=== PATIENT | female | born 1935 | race Caucasian/White ===

== ENCOUNTER 2017-03-17 14:15 | Emergency (ER) | payer OTHER ==
--- NOTE | 2017-03-17 14:50 | DR.GENAD ---
HPI - Complaint/Symptoms Chief Complaint Doctors Comments: patient with Parkinsons and dementia. Home health nurse noted left sided weakness, possible decreased breath sounds. Patient is confined to bed. - Source History Provided: Patient, Family Member - Mode of Arrival Mode of Arrival: Stretcher - Timing Came on: Gradually - Location Location: left side arm,leg - Severity Severity: Mild - Modifying Factors Worsens:: unknown - Associated Signs and Symptoms Associated Signs and Symptoms: none PMH - PMH Past Medical History: Alzheimers, Anxiety, Arthritis, Dementia, Diabetes, GERD, Hypertension Past Surgical History: Yes Surgical History: Appendectomy, Cholecystectomy, Ortho Surgery - Family History Family Medical History: Diabetes Mellitus, [place], Coronary Artery Disease, Heart Failure, Hypertension - Social History Do you use any recreational Drugs:: No ROS - Review of Systems Constitutional: Weakness (side weakness) Eyes: No Symptoms Reported ENTM: No Symptoms Reported Respiratoy: Other (decreased sounds left lung) Cardiovascular: No Symptoms Reported Gastrointestinal/Abdominal: No Symptoms Reported Neurological: Weakness (left arm) Musculoskeletal: No Symptoms Reported Integumentary: No Symptoms Reported Hematologic/Lymphatic: No Symptoms Reported Endocrine: No Symptoms Reported Psychiatric: Depression, Other (dementia) PE - Vital Signs Vitals: Temperature 97.9 F Pulse Rate 86 Respiratory Rate 16 Blood Pressure [Left Arm] 160/96 Blood Pressure [Right Arm] 140/67 Blood Pressure [Standing] 146/97 Blood Pressure [Sitting] 183/88 Blood Pressure [Lying] 162/63 Blood Pressure 103/55 O2 Sat by Pulse Oximetry 96 - General Limitations: No Limitations General Appearance: Alert, In No Apparent Distress - Head Head Exam: Normal Inspection, Atraumatic - Eyes Eye exam: Normal Appearance, EOMI. negative: Scleral Icterus, Conjunctival Injection - ENT ENT Exam: Normal Exam, Normal Oropharynx External Ear Exam: Normal External Inspection Nose Exam: Normal Nose Exam Mouth Exam: Normal Inspection. negative: Drooling, Trismus - Neck Neck Exam: Normal Inspection, Trachea Midline - Chest Chest Inspection: Normal Inspection - Respiratory Respiratory Exam: Other. negative: Accessory Muscle Use, Respiratory Distress Respiratory Exam: Left Decreased Breath Sounds, Lower Decreased Breath Sounds - Cardiovascular Cardiovascular Exam: Regular Rate - Abdominal Exam Abdominal Exam: Normal Inspection, Normal Bowel Sounds, Soft. negative: Distention, Tenderness, Guarding - Extremities Extremities Exam: Normal Inspection, Full ROM, Tenderness - Back Back Exam: Normal Inspection, Full ROM - Neurologic Neurological Exam: Alert, CN II-XII Intact. negative: Oriented X3 - Psychiatric Psychiatric Exam: Normal Affect, Normal Mood - Skin Skin Exam: Intact, Normal Color Course - Treatment Treatment: 1717: caase discussed with recommended out patient antibiotics and follow up Dr. Phillips ROR - Labs Reviewed Result Diagrams: 03/17/17 14:55 03/17/17 14:55 Laboratory: WBC 11.3 X10^3/uL (3.6-10.0) H 03/17/17 14:55 RBC 3.44 X10^6/uL (3.5-5.4) L 03/17/17 14:55 Hgb 10.3 g/dL (12.0-16.0) L 03/17/17 14:55 Hct 30.4 % (36.0-47.0) L 03/17/17 14:55 MCV 88.3 fL (80.0-100.0) 03/17/17 14:55 MCH 30.0 pg (27.0-34.0) 03/17/17 14:55 MCHC 34.0 g/dL (33.0-35.0) 03/17/17 14:55 RDW 14.9 % (11.6-16.5) 03/17/17 14:55 Plt Count 325 X10^3/uL (150.0-450.0) 03/17/17 14:55 MPV 6.6 fL (7.4-11.0) L 03/17/17 14:55 Neut % 83.9 % (42.0-75.0) H 03/17/17 14:55 Lymph % 9.5 % (21.0-51.0) L 03/17/17 14:55 [place] % 5.7 % (0.0-13.0) 03/17/17 14:55 Eos % 0.4 % (0.9-2.9) L 03/17/17 14:55 Baso % 0.5 % (0.2-1.0) 03/17/17 14:55 Neut # 9.5 x10^3/uL (2.2-4.8) H 03/17/17 14:55 Lymph # 1.1 X10^3/uL (1.3-2.9) L 03/17/17 14:55 [place] # 0.6 x10^3/uL (0.3-0.8) 03/17/17 14:55 Eos # 0.0 x10^3/uL (0.0-0.2) 03/17/17 14:55 Baso # 0.1 X10^3/uL (0.0-0.1) 03/17/17 14:55 Absolute Nucleated RBC 0.0 /100WBC 03/17/17 14:55 Sodium 137 mmol/L (136-145) 03/17/17 14:55 Corrected Sodium 142 mmol/L (136-145) 03/17/17 14:55 Potassium 4.1 mmol/L (3.5-5.1) 03/17/17 14:55 Chloride 100 mmol/L (98-107) 03/17/17 14:55 Carbon Dioxide 30.4 mmol/L (21-32) 03/17/17 14:55 BUN 15 mg/dL (7-18) 03/17/17 14:55 Creatinine 0.83 mg/dL (0.55-1.02) 03/17/17 14:55 Est GFR (MDRD) Af Amer > 60 (>60) 03/17/17 14:55 Est GFR (MDRD) Non-Af > 60 (>60) 03/17/17 14:55 Glucose 315 mg/dL (65-99) H 03/17/17 14:55 Calcium 8.9 mg/dL (8.5-10.1) 03/17/17 14:55 Corrected Calcium 9.9 mg/dL (8.5-10.1) 03/17/17 14:55 Total Bilirubin 0.40 mg/dL (0.2-1.0) 03/17/17 14:55 AST 10 Units/L (15-37) L 03/17/17 14:55 ALT < 6 Units/L (12-78) L 03/17/17 14:55 Alkaline Phosphatase 67 Units/L (46-116) 03/17/17 14:55 Total Protein 6.8 g/dL (6.4-8.2) 03/17/17 14:55 Albumin 2.8 g/dL (3.4-5.0) L 03/17/17 14:55 Globulin 4.0 g/dL (2.5-4.5) 03/17/17 14:55 Albumin/Globulin Ratio 0.7 Ratio (1.1-2.1) L 03/17/17 14:55 Specimen Type Catherized urine 03/17/17 16:10 Urine Color Yellow (YELLOW) 03/17/17 16:10 Urine Appearance Slightly hazy (CLEAR) 03/17/17 16:10 Urine pH 6.0 (5.0 - 8.0) 03/17/17 16:10 Ur Specific [place] 1.020 (1.000-1.030) 03/17/17 16:10 Urine Protein 3+ (NEGATIVE) 03/17/17 16:10 Urine Glucose (UA) 3+ (NEGATIVE) 03/17/17 16:10 Urine Ketones 1+ (NEGATIVE) 03/17/17 16:10 Urine Occult Blood 3+ (NEGATIVE) 03/17/17 16:10 Urine Nitrite Negative (NEGATIVE) 03/17/17 16:10 Urine Bilirubin Negative (NEGATIVE) 03/17/17 16:10 Urine Urobilinogen 1+ (NORMAL) 03/17/17 16:10 Ur Leukocyte Esterase 3+ (NEGATIVE) 03/17/17 16:10 Urine RBC 5-10 /HPF (NEGATIVE) 03/17/17 16:10 Urine WBC Tntc /HPF (NEGATIVE) 03/17/17 16:10 Ur Squamous Epith Cells Rare /HPF (NEGATIVE) 03/17/17 16:10 Urine Bacteria 2+ /HPF (NEGATIVE) 03/17/17 16:10 Urine Yeast Moderate /HPF (NEGATIVE) 03/17/17 16:10 Ur Culture Indicated? Yes/culture set up 03/17/17 16:10 - XRAY XRAY Interpreted by: Radiologist XRAY Findings: CT Head: unchanged Chest: possible pneumothorax CT Chest: no acute diseas - EKG Rate: 81 [place]: LAD Block: LBBB ST: Nonsp (V4-V5 t wave inversion compared to 10/2016) - Diagnosis Discharge Problem: UTI (urinary tract infection) Qualifiers: Urinary tract infection type: acute cystitis Hematuria presence: with hematuria Qualified Code(s): N30.01 - Acute cystitis with hematuria - Discharge Plan Condition: Stable Prescriptions: Ciprofloxacin HCl [CIPRO 500 MG TAB *] 500 mg PO Q12H #20 tab - Follow ups/Referrals Follow ups/Referrals: MAYRA PHILLIPS [Primary Care Provider] - 3 days - Instructions
[2017-03-17 14:57] VITALS: BP 103/55; BMI 14.6
[2017-03-17 15:04] LABS: BASOPHILS # (AUTO) 0.1 X10^3/uL (0.0-0.1); BASOPHILS % (AUTO) 0.5 % (0.2-1.0); EOSINOPHILS % (AUTO) 0.4 % (0.9-2.9); HEMATOCRIT 30.4 % (36.0-47.0); HEMOGLOBIN 10.3 g/dL (12.0-16.0); LYMPHOCYTES # (AUTO) 1.1 X10^3/uL (1.3-2.9); LYMPHOCYTES % (AUTO) 9.5 % (21.0-51.0); MEAN CORPUSCULAR VOLUME 88.3 fL (80.0-100.0); MEAN PLATELET VOLUME 6.6 fL (7.4-11.0); MONOCYTES # (AUTO) 0.6 x10^3/uL (0.3-0.8); MONOCYTES % (AUTO) 5.7 % (0.0-13.0); NEUTROPHILS # (AUTO) 9.5 x10^3/uL (2.2-4.8); NEUTROPHILS % (AUTO) 83.9 % (42.0-75.0); PLATELET COUNT 325 X10^3/uL (150.0-450.0); RED BLOOD COUNT 3.44 X10^6/uL (3.5-5.4); RED CELL DISTRIBUTION WIDTH 14.9 % (11.6-16.5); WHITE BLOOD COUNT 11.3 X10^3/uL (3.6-10.0)
[2017-03-17 15:16] LABS: ALANINE AMINOTRANSFERASE < 6 Units/L (12-78); ALBUMIN 2.8 g/dL (3.4-5.0); ALKALINE PHOSPHATASE 67 Units/L (46-116); ASPARTATE AMINO TRANSFERASE 10 Units/L (15-37); BLOOD UREA NITROGEN 15 mg/dL (7-18); CALCIUM 8.9 mg/dL (8.5-10.1); CARBON DIOXIDE 30.4 mmol/L (21-32); CHLORIDE 100 mmol/L (98-107); COR CA(FOR HYPOALB) 9.9 mg/dL (8.5-10.1); COR NA(FOR HYPERGLY) 142 mmol/L (136-145); CREATININE 0.83 mg/dL (0.55-1.02); GLUCOSE 315 mg/dL (65-99); SODIUM 137 mmol/L (136-145); TOTAL PROTEIN 6.8 g/dL (6.4-8.2); eGFR BLACK RACES > 60 (>60); eGFR NON BLACK RACES > 60 (>60)
--- NOTE | 2017-03-17 15:16 | CT ---
HISTORY: Left-sided weakness and CVA symptoms. Noncontrast head CT examination. Comparison: June 21, 2016. Technique: Multiple axial images of the brain were obtained from the skull base to the vertex without administr ation of IV contrast. Findings: There is a chronic left basal ganglia lacunar ischemic event. There is moderate sulcal and cisternal prominence as well as atherosclerotic change in the proximal intracranial carotid and eleni tebral arteries, which is not out of proportion to the patient's stated age. There is diffuse CT den sity alteration seen in the periventricular white matter of the high and mid-convexity, which is lik anne-marie in the setting of small vessel disease and not out of proportion to the patient's stated age. Th ere is mild bilateral ex vacuo ventricular dilatation without evidence for hydrocephalus or herniati on syndrome. No midline shift is evident. No acute intraparenchymal hemorrhage or mass can be identi fied. No extra-axial fluid collections are seen. No alteration in the attenuation of the brain par enchyma can be identified to suggest acute or subacute ischemic change. However, if the patients sy mptoms are clinically \T\ neurologically concerning for an acute ischemic event, then MR imaging of the brain with DWI sequencing would likely be beneficial to exclude an acute CVA. The extracranial structures are unremarkable. IMPRESSION: 1. No acute intracranial process or changes identified. Chronic appearing left basal ganglial lacun ar ischemic event appreciated, unchanged compared to 2016. 2. Age-appropriate intra-cranial changes of advancing age. Reported By:
--- NOTE | 2017-03-17 16:00 | RAD ---
HISTORY: Decreased breath sounds left lung Study: Single view of the chest. Comparison: 11/19/2016 Findings: The cardiomediastinal silhouette is normal. There appears to be a deep sulcus on the left which was not present on prior examination. No definite visceral pleural line can be seen. Osseous structures demonstrate no acute abnormality. IMPRESSION: 1. Interval development of deep sulcus on the left. This may be secondary to difference in inspirat ion however anterior pneumothorax cannot be excluded. Recommend PA and lateral views in upright posi tion or possibly CT if there is high clinical concern for pneumothorax. Reported By:
[2017-03-17 16:14] LABS: BILIRUBIN,URINE NEGATIVE (NEGATIVE); BLOOD/HEMOGLOBIN,URINE 3+ (NEGATIVE); GLUCOSE, URINE 3+ (NEGATIVE); KETONES,URINE 1+ (NEGATIVE); LEUKOCYTE ESTERASE ,URINE 3+ (NEGATIVE); NITRITES,URINE NEGATIVE (NEGATIVE); PROTEIN,URINE 3+ (NEGATIVE); UROBILINOGEN,URINE 1+ (NORMAL)
[2017-03-17 16:29] LABS: APPEARANCE,URINE SLIGHTLY HAZY (CLEAR); BACTERIA,URINE 2+ /HPF (NEGATIVE); COLOR,URINE YELLOW (YELLOW); SQUAMOUS EPITHELIAL CELL,UR RARE /HPF (NEGATIVE); YEAST,URINE MODERATE /HPF (NEGATIVE)
[2017-03-17] MEDS ORDERED: ZOSYN VIAL 2.25 GM IV ONE (16:55)
--- NOTE | 2017-03-17 17:10 | CT ---
CT chest without contrast Indication: Weakness Comparison: chest radiograph performed earlier on same day Technique: Multiple axial images of the chest were obtained from the thoracic inlet to the upper abd omen without the administration of IV contrast. Coronal and sagittal images were also provided. Radiation dose reduction techniques were performed utilizing adjustment for MA/kVP based on patient body size. Findings: The thyroid gland is normal. Heart size is normal without pericardial effusion. Extensive coronary a rtery atherosclerotic disease. The thoracic is normal in caliber with scattered calcified atheroscle rotic disease. No enlarged mediastinal or hilar lymphadenopathy. No acute airspace disease. No pleur al effusion or pneumothorax. Central airways are clear. Imaging of the upper abdomen demonstrates no acute abnormality. PEG tube is noted in place within the stomach. Severe calcified atherosclerotic disease of the abdominal aorta and large branch vessels. Review of bone windows and the upper abdomen demonstrates no acute abnormality. IMPRESSION: No acute cardiopulmonary abnormality. Reported By:
[2017-03-17] MEDS ORDERED: ROCEPHIN 1 GM IV PREMIX * OUT OF STOCK 50 ML IV ONE (17:19)
[2017-03-17] MEDS ORDERED: ROCEPHIN VIAL 1 GM 1 GM in NS 50 ML IV + SPIKE MINIBAG* 50 ML IV ONE (17:20)
[2017-03-17] MEDS ORDERED: NS 50 ML IV 50 ML IV ONE (17:21)
== END 2017-03-17 17:48 | disposition home or self-care (01) ==
LOC: ER 14:15
DX: N30.01 Acute cystitis with hematuria (principal); B96.29 Other Escherichia coli [E. coli] as the cause of diseases classified elsewhere; F03.90 Unspecified dementia, unspecified severity, without behavioral disturbance, psychotic disturbance, mood disturbance, and anxiety
CPT/HCPCS: 36415; 70450; 71010; 71250; 80053; 81001; 85025; 87086; 87088; 87186; 93005; 93010; 96365; 96374; 99283; A4222; J0696

== ENCOUNTER 2017-05-05 00:10 | Emergency (ER) | payer OTHER ==
[2017-05-05 00:16] VITALS: BMI 14.4
--- NOTE | 2017-05-05 00:33 | DR.GENAD ---
HPI - PCP Primary Care Physician: Alan - Complaint/Symptoms Chief Complaint:: "She has been really weak and just started throwing up. She has also been crying and scared" Self Treatment fo Chief Complaint: Dramamine. Phenergan - Source History Provided: Patient, Family Member - Mode of Arrival Mode of Arrival: EMS - Timing Onset of Chief Complaint: 05/05/17 PMH - PMH Past Medical History: Yes Past Medical History: Alzheimers, Anxiety, Arthritis, Dementia, Diabetes, GERD, Hypertension Past Surgical History: Yes Surgical History: Appendectomy, Cholecystectomy, Ortho Surgery - Family History History of Family Medical Conditions: Yes Family Medical History: Diabetes Mellitus, [place], Coronary Artery Disease, Heart Failure, Hypertension - Social History Does patient currently use any type of tobacco product: No Have you used tobacco products in the last 12 months: No Type of Tobacco Use: None Does any household member use tobacco: No Do you use any recreational Drugs:: No Lives Where: Home - infectious screening In the last 2 months have you had wt loss of >10#?: NO Have you had fever, night sweats or hemotysis?: No Have you traveled outside the country in the last 6 months?: No Isolation: Standard ROS - Review of Systems Eyes: No Symptoms Reported ENTM: No Symptoms Reported Respiratoy: No Symptoms Reported Cardiovascular: No Symptoms Reported Gastrointestinal/Abdominal: No Symptoms Reported Genitourinary: No Symptoms Reported Neurological: No Symptoms Reported Musculoskeletal: No Symptoms Reported Integumentary: Lesions (bed sore buttock) Hematologic/Lymphatic: No Symptoms Reported Endocrine: No Symptoms Reported Psychiatric: No Symptoms Reported All Other Systems: Reviewed and Negative PE - Vital Signs Vitals: Temperature 99.6 F Pulse Rate 110 Respiratory Rate 18 Blood Pressure [Left Arm] 160/96 Blood Pressure [Right Arm] 140/67 Blood Pressure [Standing] 146/97 Blood Pressure [Sitting] 183/88 Blood Pressure [Lying] 162/63 Blood Pressure 149/77 O2 Sat by Pulse Oximetry 98 - General Limitations: No Limitations General Appearance: Alert, In No Apparent Distress - Head Head Exam: Normal Inspection - Eyes Eye exam: PERRL, EOMI - ENT ENT Exam: Normal Exam External Ear Exam: Normal External Inspection TM/Canal Exam: Bilateral Normal Nose Exam: Normal Nose Exam Mouth Exam: Normal Inspection Throat Exam: Normal Inspection - Neck Neck Exam: Normal Inspection - Chest Chest Inspection: Normal Inspection - Respiratory Respiratory Exam: Normal Lung Sounds Bilat Respiratory Exam: Bilateral Clear to Auscultation - Cardiovascular Cardiovascular Exam: Tachycardia - Abdominal Exam Abdominal Exam: Normal Inspection Abdominal Tenderness: negative: RUQ, RLQ, LUQ, LLQ, Epigastrium, Suprapubic, Diffuse, Mild, Moderate, Severe, Other - Extremities Extremities Exam: Normal Inspection - Back Back Exam: Normal Inspection - Neurologic Neurological Exam: Alert, Oriented X3, CN II-XII Intact - Psychiatric Psychiatric Exam: Normal Affect - Skin Skin Exam: Warm, Dry (decubitous ulcer) Course - Treatment Treatment: NS x 2L IV - Reevaluation 1st: Improved - Consultation Called: 01:50 (Left message) ROR - Labs Reviewed Result Diagrams: 05/05/17 00:52 05/05/17 05:30 Laboratory: WBC 13.7 X10^3/uL (3.6-10.0) H 05/05/17 00:52 RBC 3.83 X10^6/uL (3.5-5.4) 05/05/17 00:52 Hgb 11.1 g/dL (12.0-16.0) L 05/05/17 00:52 Hct 32.0 % (36.0-47.0) L 05/05/17 00:52 MCV 83.6 fL (80.0-100.0) 05/05/17 00:52 MCH 28.9 pg (27.0-34.0) 05/05/17 00:52 MCHC 34.5 g/dL (33.0-35.0) 05/05/17 00:52 RDW 14.8 % (11.6-16.5) 05/05/17 00:52 Plt Count 512 X10^3/uL (150.0-450.0) H 05/05/17 00:52 MPV 6.9 fL (7.4-11.0) L 05/05/17 00:52 Neut % 86.1 % (42.0-75.0) H 05/05/17 00:52 Lymph % 7.7 % (21.0-51.0) L 05/05/17 00:52 [place] % 5.3 % (0.0-13.0) 05/05/17 00:52 Eos % 0.2 % (0.9-2.9) L 05/05/17 00:52 Baso % 0.7 % (0.2-1.0) 05/05/17 00:52 Neut # 11.8 x10^3/uL (2.2-4.8) H 05/05/17 00:52 Lymph # 1.1 X10^3/uL (1.3-2.9) L 05/05/17 00:52 [place] # 0.7 x10^3/uL (0.3-0.8) 05/05/17 00:52 Eos # 0.0 x10^3/uL (0.0-0.2) 05/05/17 00:52 Baso # 0.1 X10^3/uL (0.0-0.1) 05/05/17 00:52 Absolute Nucleated RBC 0.0 /100WBC 05/05/17 00:52 Sodium 134 mmol/L (136-145) L 05/05/17 05:30 Corrected Sodium 137 mmol/L (136-145) 05/05/17 05:30 Potassium 3.8 mmol/L (3.5-5.1) 05/05/17 05:30 Chloride 98 mmol/L (98-107) 05/05/17 05:30 Carbon Dioxide 29.0 mmol/L (21-32) 05/05/17 05:30 BUN 13 mg/dL (7-18) 05/05/17 05:30 Creatinine 0.68 mg/dL (0.55-1.02) 05/05/17 05:30 Est GFR (MDRD) Af Amer > 60 (>60) 05/05/17 05:30 Est GFR (MDRD) Non-Af > 60 (>60) 05/05/17 05:30 Glucose 217 mg/dL (65-99) H 05/05/17 05:30 Calcium 9.3 mg/dL (8.5-10.1) 05/05/17 05:30 Corrected Calcium 10.2 mg/dL (8.5-10.1) H 05/05/17 00:52 Total Bilirubin 0.50 mg/dL (0.2-1.0) 05/05/17 00:52 AST 28 Units/L (15-37) 05/05/17 00:52 ALT 10 Units/L (12-78) L 05/05/17 00:52 Alkaline Phosphatase 66 Units/L (46-116) 05/05/17 00:52 C-Reactive Protein 61.10 mg/L (0-3.0) H 05/05/17 00:52 Total Protein 7.3 g/dL (6.4-8.2) 05/05/17 00:52 Albumin 3.0 g/dL (3.4-5.0) L 05/05/17 00:52 Globulin 4.3 g/dL (2.5-4.5) 05/05/17 00:52 Albumin/Globulin Ratio 0.7 Ratio (1.1-2.1) L 05/05/17 00:52 - XRAY XRAY Interpreted by: Radiologist (Chest: clear) - Diagnosis Discharge Problem: Acute hyponatremia Vomiting Qualifiers: Vomiting type: unspecified Vomiting Intractability: unspecified Nausea presence : with nausea Qualified Code(s): R11.2 - Nausea with vomiting, unspecified - Discharge Plan Condition: Stable - Follow ups/Referrals Follow ups/Referrals: MAYRA FAULKNER [Primary Care Provider] - 3 days - Instructions
[2017-05-05] MEDS ORDERED: NS 1000 ML 1,000 ML IV ONE (00:34)
[2017-05-05] MEDS ORDERED: NS 1000 ML 1,000 ML ONE ×2 (00:37→02:37)
[2017-05-05 01:03] LABS: BASOPHILS # (AUTO) 0.1 X10^3/uL (0.0-0.1); BASOPHILS % (AUTO) 0.7 % (0.2-1.0); EOSINOPHILS % (AUTO) 0.2 % (0.9-2.9); HEMOGLOBIN 11.1 g/dL (12.0-16.0); LYMPHOCYTES # (AUTO) 1.1 X10^3/uL (1.3-2.9); LYMPHOCYTES % (AUTO) 7.7 % (21.0-51.0); MEAN CORPUSCULAR HEMOGLOBIN 28.9 pg (27.0-34.0); MEAN CORPUSCULAR HGB CONC 34.5 g/dL (33.0-35.0); MEAN CORPUSCULAR VOLUME 83.6 fL (80.0-100.0); MEAN PLATELET VOLUME 6.9 fL (7.4-11.0); MONOCYTES # (AUTO) 0.7 x10^3/uL (0.3-0.8); MONOCYTES % (AUTO) 5.3 % (0.0-13.0); NEUTROPHILS # (AUTO) 11.8 x10^3/uL (2.2-4.8); NEUTROPHILS % (AUTO) 86.1 % (42.0-75.0); PLATELET COUNT 512 X10^3/uL (150.0-450.0); RED BLOOD COUNT 3.83 X10^6/uL (3.5-5.4); RED CELL DISTRIBUTION WIDTH 14.8 % (11.6-16.5); WHITE BLOOD COUNT 13.7 X10^3/uL (3.6-10.0)
[2017-05-05 01:13] LABS: ALANINE AMINOTRANSFERASE 10 Units/L (12-78); ALKALINE PHOSPHATASE 66 Units/L (46-116); ASPARTATE AMINO TRANSFERASE 28 Units/L (15-37); BLOOD UREA NITROGEN 15 mg/dL (7-18); CALCIUM 9.4 mg/dL (8.5-10.1); CARBON DIOXIDE 28.7 mmol/L (21-32); CHLORIDE 93 mmol/L (98-107); COR CA(FOR HYPOALB) 10.2 mg/dL (8.5-10.1); COR NA(FOR HYPERGLY) 134 mmol/L (136-145); CREATININE 0.74 mg/dL (0.55-1.02); GLUCOSE 270 mg/dL (65-99); SODIUM 130 mmol/L (136-145); TOTAL PROTEIN 7.3 g/dL (6.4-8.2); eGFR BLACK RACES > 60 (>60); eGFR NON BLACK RACES > 60 (>60)
--- NOTE | 2017-05-05 01:15 | RAD ---
Chest, one view Indication: Nausea and vomiting Comparison: 03/17/2017 Findings: Normal heart size. Lungs are hyperinflated but clear. No pleural effusion or pneumothorax identified. Impression: Lungs hyperinflated, but clear. Reported By:
[2017-05-05] MEDS ORDERED: ZOFRAN INJ 4 MG VIAL ONE (02:37)
[2017-05-05] MEDS ORDERED: ATIVAN INJ 2 MG VIAL ONE (02:38)
[2017-05-05] MEDS ORDERED: ATIVAN INJ 2 MG VIAL IVP ONE (02:39)
[2017-05-05] MEDS ORDERED: ZOFRAN INJ 4 MG VIAL IVP ONE (02:55)
[2017-05-05] MEDS ORDERED: NS 1000 ML 1,000 ML IV SCH (03:00)
[2017-05-05 05:59] LABS: BLOOD UREA NITROGEN 13 mg/dL (7-18); CALCIUM 9.3 mg/dL (8.5-10.1); CHLORIDE 98 mmol/L (98-107); COR NA(FOR HYPERGLY) 137 mmol/L (136-145); CREATININE 0.68 mg/dL (0.55-1.02); GLUCOSE 217 mg/dL (65-99); SODIUM 134 mmol/L (136-145); eGFR BLACK RACES > 60 (>60); eGFR NON BLACK RACES > 60 (>60)
[2017-05-05 06:45] VITALS: BP 139/78
== END 2017-05-05 06:40 | disposition home or self-care (01) ==
LOC: ER 00:10
DX: E87.1 Hypo-osmolality and hyponatremia (principal); R11.2 Nausea with vomiting, unspecified
CPT/HCPCS: 36415; 71010; 80048; 80053; 85025; 86140; 96365; 96374; 96375; 99283; A4222; J2060; J2405

== ENCOUNTER 2017-05-19 23:28 | Emergency (ER) | payer OTHER ==
[2017-05-19 23:42] VITALS: BP 132/65; BMI 17.2
--- NOTE | 2017-05-19 23:43 | DR.GENAD ---
HPI - PCP Primary Care Physician: IKE - HPI Comment HPI Comment: HISTORY BELOW. - Complaint/Symptoms Chief Complaint Doctors Comments: PATIENT BLOOD PRESSURE WAS ABNORMAL AT HOME AND EMS WAS CALLED. PATIENT COMPLAINING OF ACHES AND PAIN WELL. PT HAVE FEVER. Chief Complaint:: EMS RESPONDED TO A CALL IN [facility] FOR HYPERTENSION, AND POSSIBLE FEVER TODAY ONLY. - Nurses notes reviewed Nurses Notes Review: Yes - Source History Provided: EMS - Mode of Arrival Mode of Arrival: EMS - Timing Onset of Chief Complaint: 05/19/17 Came on: Suddenly - Duration Duration: Constant Duration: Hours - Severity Severity: Moderate PMH - PMH Past Medical History: Yes Past Medical History: Alzheimers, Anxiety, Arthritis, Dementia, Diabetes, GERD, Hypertension Past Medical History Comment: CARDENAS CATHETER, G TUBE Past Surgical History: Yes Surgical History: Appendectomy, Cholecystectomy, Ortho Surgery - Family History History of Family Medical Conditions: Yes Family Medical History: Diabetes Mellitus, [place], Coronary Artery Disease, Heart Failure, Hypertension - Social History Does patient currently use any type of tobacco product: No Have you used tobacco products in the last 12 months: No Type of Tobacco Use: None Does any household member use tobacco: No Alcohol Use: None Do you use any recreational Drugs:: No Lives With: Family Lives Where: Home - infectious screening Have you traveled outside the country in the last 6 months?: No Isolation: Standard ROS - Review of Systems Constitutional: Fever, Weakness, Fatigue, Loss of Appetite. negative: Chills, Diaphoresis Eyes: No Symptoms Reported. negative: Eye Pain, Discharge ENTM: No Symptoms Reported, Nose Discharge, Nose Congestion, Throat Pain. negative: Ear Pain Respiratoy: Non-Productive Cough, Short of Breath. negative: Productive Cough, Wheezing, Hemoptysis Cardiovascular: negative: Chest Pain, Edema, Palpitations, Syncope Gastrointestinal/Abdominal: No Symptoms Reported. negative: Abdominal Pain, Constipation, Diarrhea, Nausea, Vomiting Genitourinary: No Symptoms Reported. negative: Dysuria, Frequency, Hematuria Neurological: Headache, Weakness, Dizziness Musculoskeletal: Muscle Pain Integumentary: Dryness. negative: Rash, Bruises Hematologic/Lymphatic: Easy Bleeding, Easy Bruising Endocrine: No Symptoms Reported All Other Systems: Reviewed and Negative PE - Vital Signs Vitals: Temperature 99.0 F Pulse Rate 99 Respiratory Rate 16 Blood Pressure [Left Arm] 139/78 Blood Pressure [Right Arm] 140/67 Blood Pressure [Standing] 146/97 Blood Pressure [Sitting] 183/88 Blood Pressure [Lying] 162/63 Blood Pressure 132/65 O2 Sat by Pulse Oximetry 99 - General Limitations: Other (DEMENTIA.) General Appearance: Alert - Head Head Exam: Normal Inspection - Eyes Eye exam: PERRL. negative: Scleral Icterus, Conjunctival Injection - ENT ENT Exam: Normal External Ear Exam External Ear Exam: Normal External Inspection TM/Canal Exam: Bilateral Normal Nose Exam: Normal Nose Exam Mouth Exam: Normal Inspection Throat Exam: Normal Inspection - Neck Neck Exam: Trachea Midline - Chest Chest Inspection: Symmetric Chest Wall Rise - Respiratory Respiratory Exam: Respiratory Distress Respiratory Exam: Bilateral Wheezing, Bilateral Rhonchi, Lower Wheezing, Lower Rhonchi - Cardiovascular Cardiovascular Exam: Regular Rate, Normal Rhythm, Normal Heart Sounds - Abdominal Exam Abdominal Exam: Normal Bowel Sounds, Soft, Tenderness Abdominal Tenderness: Diffuse, Mild - Extremities Extremities Exam: Normal Inspection - Back Back Exam: Normal Inspection - Neurologic Neurological Exam: Alert. negative: Oriented X3 - Psychiatric Psychiatric Exam: Normal Affect, Normal Mood - Skin Skin Exam: Normal Color MDM - Additional Information Additional Information Obtained From: Family - Differential Diagnosis Differential Diagnosis: HISTORY HYPOTENSION, [place], UTI, PNEUMONIA, DEHYDRATION. ELECTROLYTE IMBALANCE Course - Treatment Treatment: SEE ORDERS. - Education/Counseling Education/Counseling: Patient, Family, Education Educated On: Diagnosis, Needs for Follow Up ROR - Labs Reviewed Laboratory Results Reviewed?: Yes Result Diagrams: 05/19/17 23:59 05/19/17 23:59 Laboratory: 05/20/17 00:19 Urine,Catheterized Urine Culture - Final Escherichia Coli WBC 11.9 X10^3/uL (3.6-10.0) H 05/19/17 23:59 RBC 4.08 X10^6/uL (3.5-5.4) 05/19/17 23:59 Hgb 12.0 g/dL (12.0-16.0) 05/19/17 23:59 Hct 35.2 % (36.0-47.0) L 05/19/17 23:59 MCV 86.2 fL (80.0-100.0) 05/19/17 23:59 MCH 29.4 pg (27.0-34.0) 05/19/17 23:59 MCHC 34.1 g/dL (33.0-35.0) 05/19/17 23:59 RDW 15.9 % (11.6-16.5) 05/19/17 23:59 Plt Count 459 X10^3/uL (150.0-450.0) H 05/19/17 23:59 MPV 7.6 fL (7.4-11.0) 05/19/17 23:59 Neut % 83.1 % (42.0-75.0) H 05/19/17 23:59 Lymph % 8.9 % (21.0-51.0) L 05/19/17 23:59 [place] % 6.6 % (0.0-13.0) 05/19/17 23:59 Eos % 0.5 % (0.9-2.9) L 05/19/17 23:59 Baso % 0.9 % (0.2-1.0) 05/19/17 23:59 Neut # 9.9 x10^3/uL (2.2-4.8) H 05/19/17 23:59 Lymph # 1.1 X10^3/uL (1.3-2.9) L 05/19/17 23:59 [place] # 0.8 x10^3/uL (0.3-0.8) 05/19/17 23:59 Eos # 0.1 x10^3/uL (0.0-0.2) 05/19/17 23:59 Baso # 0.1 X10^3/uL (0.0-0.1) 05/19/17 23:59 Absolute Nucleated RBC 0.1 /100WBC 05/19/17 23:59 Sodium 131 mmol/L (136-145) L 05/19/17 23:59 Corrected Sodium 133 mmol/L (136-145) L 05/19/17 23:59 Potassium 4.1 mmol/L (3.5-5.1) 05/19/17 23:59 Chloride 96 mmol/L (98-107) L 05/19/17 23:59 Carbon Dioxide 27.5 mmol/L (21-32) 05/19/17 23:59 BUN 25 mg/dL (7-18) H 05/19/17 23:59 Creatinine 0.90 mg/dL (0.55-1.02) 05/19/17 23:59 Est GFR (MDRD) Af Amer > 60 (>60) 05/19/17 23:59 Est GFR (MDRD) Non-Af > 60 (>60) 05/19/17 23:59 Glucose 204 mg/dL (65-99) H 05/19/17 23:59 Calcium 8.8 mg/dL (8.5-10.1) 05/19/17 23:59 Corrected Calcium 9.5 mg/dL (8.5-10.1) 05/19/17 23:59 Total Bilirubin 0.30 mg/dL (0.2-1.0) 05/19/17 23:59 AST 15 Units/L (15-37) 05/19/17 23:59 ALT 10 Units/L (12-78) L 05/19/17 23:59 Alkaline Phosphatase 77 Units/L (46-116) 05/19/17 23:59 Creatine Kinase 115 Units/L (26-192) 05/19/17 23:59 CK-MB (CK-2) 4.7 ng/mL (0-4.0) H* 05/19/17 23:59 CK/CKMB % Calc 4.1 % (<4) 05/19/17 23:59 Troponin I < 0.02 ng/mL (0-1.5) 05/19/17 23:59 Total Protein 7.0 g/dL (6.4-8.2) 05/19/17 23:59 Albumin 3.1 g/dL (3.4-5.0) L 05/19/17 23:59 Globulin 3.9 g/dL (2.5-4.5) 05/19/17 23:59 Albumin/Globulin Ratio 0.8 Ratio (1.1-2.1) L 05/19/17 23:59 Specimen Type Clean catch urine 05/20/17 00:19 Urine Color Yellow (YELLOW) 05/20/17 00:19 Urine Appearance Hazy (CLEAR) 05/20/17 00:19 Urine pH 6.5 (5.0 - 8.0) 05/20/17 00:19 Ur Specific [place] 1.010 (1.000-1.030) 05/20/17 00:19 Urine Protein 2+ (NEGATIVE) 05/20/17 00:19 Urine Glucose (UA) 1+ (NEGATIVE) 05/20/17 00:19 Urine Ketones Negative (NEGATIVE) 05/20/17 00:19 Urine Occult Blood 3+ (NEGATIVE) 05/20/17 00:19 Urine Nitrite Positive (NEGATIVE) 05/20/17 00:19 Urine Bilirubin Negative (NEGATIVE) 05/20/17 00:19 Urine Urobilinogen Normal (NORMAL) 05/20/17 00:19 Ur Leukocyte Esterase 3+ (NEGATIVE) 05/20/17 00:19 Urine RBC 10-15 /HPF (NEGATIVE) 05/20/17 00:19 Urine WBC 80-100 /HPF (NEGATIVE) 05/20/17 00:19 Ur Squamous Epith Cells Few /HPF (NEGATIVE) 05/20/17 00:19 Urine Bacteria 4+ /HPF (NEGATIVE) 05/20/17 00:19 Urine Yeast Few /HPF (NEGATIVE) 05/20/17 00:19 Ur Culture Indicated? Yes/culture set up 05/20/17 00:19 - XRAY XRAY Interpreted by: Radiologist XRAY Findings: REPORT DISCUSS WITH PATIENT. - EKG Rhythm: NSR (EKG NOTED) - Diagnosis Discharge Problem: Weakness UTI (urinary tract infection) Qualifiers: Urinary tract infection type: site unspecified Hematuria presence: without hematuria Qualified Code(s): N39.0 - Urinary tract infection, site not specified - Discharge Plan Disposition: 01 HOME, SELF-CARE Condition: Stable Prescriptions: Levofloxacin [Levaquin Tab 500 mg] 500 mg PO Q24H #7 tab - Follow ups/Referrals Follow ups/Referrals: Diaz Campos [Primary Care Provider] - 3 days - Instructions Instructions: Urinary Tract Infection, Weakness, [id number] Additional Instructions: RETURN TO ED IF WORSE.
[2017-05-20 00:16] LABS: BASOPHILS # (AUTO) 0.1 X10^3/uL (0.0-0.1); BASOPHILS % (AUTO) 0.9 % (0.2-1.0); EOSINOPHILS # (AUTO) 0.1 x10^3/uL (0.0-0.2); EOSINOPHILS % (AUTO) 0.5 % (0.9-2.9); HEMATOCRIT 35.2 % (36.0-47.0); LYMPHOCYTES # (AUTO) 1.1 X10^3/uL (1.3-2.9); LYMPHOCYTES % (AUTO) 8.9 % (21.0-51.0); MEAN CORPUSCULAR HEMOGLOBIN 29.4 pg (27.0-34.0); MEAN CORPUSCULAR HGB CONC 34.1 g/dL (33.0-35.0); MEAN CORPUSCULAR VOLUME 86.2 fL (80.0-100.0); MEAN PLATELET VOLUME 7.6 fL (7.4-11.0); MONOCYTES # (AUTO) 0.8 x10^3/uL (0.3-0.8); MONOCYTES % (AUTO) 6.6 % (0.0-13.0); NEUTROPHILS # (AUTO) 9.9 x10^3/uL (2.2-4.8); NEUTROPHILS % (AUTO) 83.1 % (42.0-75.0); PLATELET COUNT 459 X10^3/uL (150.0-450.0); RED BLOOD COUNT 4.08 X10^6/uL (3.5-5.4); RED CELL DISTRIBUTION WIDTH 15.9 % (11.6-16.5); WHITE BLOOD COUNT 11.9 X10^3/uL (3.6-10.0)
[2017-05-20 00:29] LABS: BILIRUBIN,URINE NEGATIVE (NEGATIVE); BLOOD/HEMOGLOBIN,URINE 3+ (NEGATIVE); GLUCOSE, URINE 1+ (NEGATIVE); KETONES,URINE NEGATIVE (NEGATIVE); LEUKOCYTE ESTERASE ,URINE 3+ (NEGATIVE); NITRITES,URINE POSITIVE (NEGATIVE); PH,URINE 6.5 (5.0 - 8.0); PROTEIN,URINE 2+ (NEGATIVE); UROBILINOGEN,URINE NORMAL (NORMAL)
[2017-05-20 00:36] LABS: BLOOD UREA NITROGEN 25 mg/dL (7-18); CALCIUM 8.8 mg/dL (8.5-10.1); CARBON DIOXIDE 27.5 mmol/L (21-32); CHLORIDE 96 mmol/L (98-107); COR NA(FOR HYPERGLY) 133 mmol/L (136-145); GLUCOSE 204 mg/dL (65-99); SODIUM 131 mmol/L (136-145); TROPONIN I < 0.02 ng/mL (0-1.5); eGFR BLACK RACES > 60 (>60); eGFR NON BLACK RACES > 60 (>60)
[2017-05-20 00:41] LABS: APPEARANCE,URINE HAZY (CLEAR); BACTERIA,URINE 4+ /HPF (NEGATIVE); COLOR,URINE YELLOW (YELLOW); SQUAMOUS EPITHELIAL CELL,UR FEW /HPF (NEGATIVE); YEAST,URINE FEW /HPF (NEGATIVE)
[2017-05-20 00:59] LABS: ALANINE AMINOTRANSFERASE 10 Units/L (12-78); ALBUMIN 3.1 g/dL (3.4-5.0); ALKALINE PHOSPHATASE 77 Units/L (46-116); ASPARTATE AMINO TRANSFERASE 15 Units/L (15-37); CKMB % 4.1 % (<4); COR CA(FOR HYPOALB) 9.5 mg/dL (8.5-10.1); CREATINE KINASE 115 Units/L (26-192)
[2017-05-20 01:03] LABS: CREATINE KINASE MB 4.7 ng/mL (0-4.0)
[2017-05-20] MEDS ORDERED: ROCEPHIN VIAL 1 GM IM ONE (02:01)
[2017-05-20] MEDS ORDERED: NORCO 5/325 MG TAB PO ONE (02:02)
[2017-05-20] MEDS ORDERED: NORCO 5/325 MG TAB ONE (02:05)
[2017-05-20] MEDS ORDERED: ROCEPHIN VIAL 1 GM ONE (02:05)
--- NOTE | 2017-05-20 03:56 | RAD ---
AP Chest Indication: Chest pain Comparison: 05/05/2017 Findings: The patient is rotated with persistent hyperinflation the lungs. The trachea is midline. The cardiac silhouette is unremarkable. The lungs are clear without focal infiltrate or effusion. The bony thorax is unremarkable. IMPRESSION: 1. No acute cardiopulmonary abnormality or significant change from prior exam. Reported By:
== END 2017-05-20 02:23 | disposition home or self-care (01) ==
LOC: ER 23:28
DX: N39.0 Urinary tract infection, site not specified (principal); R53.1 Weakness; B96.29 Other Escherichia coli [E. coli] as the cause of diseases classified elsewhere; E11.9 Type 2 diabetes mellitus without complications; Z79.84 Long term (current) use of oral hypoglycemic drugs
CPT/HCPCS: 36415; 71010; 80053; 81001; 82550; 82553; 84484; 85025; 87086; 87088; 87186; 93005; 93010; 96372; 99283; J0696

== ENCOUNTER 2017-06-09 10:44 | Emergency (ER) | payer OTHER ==
[2017-06-09 11:16] VITALS: BMI 14.6
[2017-06-09 11:36] LABS: BILIRUBIN,URINE NEGATIVE (NEGATIVE); BLOOD/HEMOGLOBIN,URINE 2+ (NEGATIVE); GLUCOSE, URINE NEGATIVE (NEGATIVE); KETONES,URINE 2+ (NEGATIVE); LEUKOCYTE ESTERASE ,URINE 3+ (NEGATIVE); NITRITES,URINE NEGATIVE (NEGATIVE); PROTEIN,URINE 2+ (NEGATIVE); UROBILINOGEN,URINE NORMAL (NORMAL)
--- NOTE | 2017-06-09 11:41 | DR.AMS ---
HPI - Time Seen Time seen: 11:25 - PCP Primary Care Physician: DANIEL KEE - Complaint Chief Complaint:: EMS STATES PRIOR TO THEIR ARRIVAL, THE VISITING NURSE CALLS AND STATES PT. BECAME PALE, DIAPHORETIC, AND LETHARGIC. UPON EMS ARRIVAL, PT. IS AWAKE AND ALERT AND SKIN IS WARM AND DRY. THEY ARE BRINGING PT. IN TO BE EVALUATED. - Reviewed Nurses Notes Reviewed: Yes - Source History Provided: EMS - Mode of Arrival Mode of Arrival: EMS - Timing Onset of Chief Complaint: 06/09/17 Came On: Suddenly PMH - PMH Past Medical History: Yes Past Medical History: Alzheimers, Anxiety, Arthritis, Dementia, Diabetes, GERD, Hypertension Past Medical History Comment: [facility] Past Surgical History: Yes Surgical History: Appendectomy, Cholecystectomy, Ortho Surgery - Family History History of Family Medical Conditions: Yes Family Medical History: Diabetes Mellitus, [place], Coronary Artery Disease, Heart Failure, Hypertension - Social History Does patient currently use any type of tobacco product: No Have you used tobacco products in the last 12 months: No Type of Tobacco Use: None Does any household member use tobacco: No Alcohol Use: None Do you use any recreational Drugs:: No Lives With: Family, Sitter Lives Where: Home - infectious screening In the last 2 months have you had wt loss of >10#?: NO Have you had fever, night sweats or hemotysis?: No Have you traveled outside the country in the last 6 months?: No Isolation: Standard ROS - Review of Systems Constitutional: Fever Eyes: No Symptoms Reported ENTM: Nose Congestion Respiratoy: No Symptoms Reported Cardiovascular: No Symptoms Reported Gastrointestinal/Abdominal: No Symptoms Reported Genitourinary: No Symptoms Reported Neurological: No Symptoms Reported Musculoskeletal: No Symptoms Reported Integumentary: No Symptoms Reported, Other Hematologic/Lymphatic: No Symptoms Reported Endocrine: No Symptoms Reported All Other Systems: Reviewed and Negative PE - Vitals Vital Signs: BP BP BP BP BP BP 05/19/17 23:30 132/65 05/05/17 06:15 139/78 11/19/16 12:00 140/67 10/25/14 16:00 162/63 183/88 146/97 - General Limitations: Altered Mental Status General Appearance: Alert, In No Apparent Distress, Cachectic - Head Head Exam: Normal Inspection - Eyes Eye exam: Normal Appearance - ENT ENT Exam: Normal Exam, Mucous Membranes Moist External Ear Exam: Normal External Inspection Nose Exam: Normal Nose Exam Mouth Exam: Normal Inspection Throat Exam: Normal Inspection - Neck Neck Exam: Normal Inspection - Chest Chest Inspection: Normal Inspection - Respiratory Respiratory Exam: Normal Lung Sounds Bilat Respiratory Exam: Bilateral Clear to Auscultation - Cardiovascular Cardiovascular Exam: Regular Rate, Normal Rhythm, Normal Heart Sounds - Abdominal Exam Abdominal Exam: Normal Inspection, Normal Bowel Sounds - Extremities Extremities Exam: Normal Inspection - Back Back Exam: Normal Inspection - Neurological Neurological Exam: Alert Patient Oriented To: Person Cerebellar Function: Other (bedridden) - Psychological Psychiatric Exam: Other (dementia) ROR - Labs Reviewed Result Diagrams: 06/09/17 12:12 06/09/17 14:29 - Diagnosis Discharge Problem: Mucus plugging of bronchi - Discharge Plan Disposition: HOME, SELF-CARE Condition: Stable Prescriptions: Ciprofloxacin HCl [CIPRO 500 MG TAB *] 500 mg PO Q12H #20 tab - Follow ups/Referrals Follow ups/Referrals: HONORIO DE JESUS [Primary Care Provider] - 3 days - Instructions Instructions: Hyponatremia, Urinary Tract Infection, [id number], Dehydration , Adult, [id number], Urinary Tract Infection
[2017-06-09 11:45] LABS: APPEARANCE,URINE HAZY (CLEAR); BACTERIA,URINE 1+ /HPF (NEGATIVE); COLOR,URINE YELLOW (YELLOW); MUCUS,URINE MODERATE /HPF (NEGATIVE); SQUAMOUS EPITHELIAL CELL,UR RARE /HPF (NEGATIVE)
[2017-06-09 11:46] LABS: YEAST,URINE MODERATE /HPF (NEGATIVE)
[2017-06-09 11:56] LABS: BLOOD UREA NITROGEN 20 mg/dL (7-18); CALCIUM 8.8 mg/dL (8.5-10.1); CHLORIDE 90 mmol/L (98-107); COR NA(FOR HYPERGLY) 128 mmol/L (136-145); CREATININE 0.93 mg/dL (0.55-1.02); GLUCOSE 199 mg/dL (65-99); SODIUM 126 mmol/L (136-145); eGFR BLACK RACES > 60 (>60); eGFR NON BLACK RACES > 60 (>60)
[2017-06-09 12:01] LABS: ALANINE AMINOTRANSFERASE 9 Units/L (12-78); ALBUMIN 3.4 g/dL (3.4-5.0); ALKALINE PHOSPHATASE 77 Units/L (46-116); ASPARTATE AMINO TRANSFERASE 20 Units/L (15-37); TOTAL PROTEIN 7.2 g/dL (6.4-8.2)
[2017-06-09 12:02] VITALS: BP 154/81
--- NOTE | 2017-06-09 12:15 | RAD ---
HISTORY: 81-year-old female with the choking episode. Study: Frontal view of the chest. Comparison: Chest radiographs May 20, 2017 Findings: The trachea is midline. The cardiac silhouette is unremarkable. The lungs are clear without focal consolidation, effusion or pneumothorax. Soft tissues are unremarkable. Osseus structures are unrem arkable. IMPRESSION: 1. No acute cardiopulmonary disease. Reported By:
[2017-06-09 12:20] LABS: BASOPHILS # (AUTO) 0.1 X10^3/uL (0.0-0.1); BASOPHILS % (AUTO) 0.6 % (0.2-1.0); EOSINOPHILS % (AUTO) 0.3 % (0.9-2.9); HEMATOCRIT 39.4 % (36.0-47.0); HEMOGLOBIN 13.7 g/dL (12.0-16.0); LYMPHOCYTES # (AUTO) 0.7 X10^3/uL (1.3-2.9); LYMPHOCYTES % (AUTO) 6.1 % (21.0-51.0); MEAN CORPUSCULAR HEMOGLOBIN 29.8 pg (27.0-34.0); MEAN CORPUSCULAR HGB CONC 34.8 g/dL (33.0-35.0); MEAN CORPUSCULAR VOLUME 85.7 fL (80.0-100.0); MEAN PLATELET VOLUME 6.5 fL (7.4-11.0); MONOCYTES # (AUTO) 0.5 x10^3/uL (0.3-0.8); MONOCYTES % (AUTO) 4.3 % (0.0-13.0); NEUTROPHILS # (AUTO) 10.7 x10^3/uL (2.2-4.8); NEUTROPHILS % (AUTO) 88.7 % (42.0-75.0); PLATELET COUNT 549 X10^3/uL (150.0-450.0); RED BLOOD COUNT 4.59 X10^6/uL (3.5-5.4); RED CELL DISTRIBUTION WIDTH 16.4 % (11.6-16.5)
[2017-06-09] MEDS ORDERED: NS 500 ML IV 300 ML IV ONE (12:21)
[2017-06-09] MEDS ORDERED: ROCEPHIN VIAL 1 GM 1 GM in NS 50 ML IV + SPIKE MINIBAG* 50 ML IV STA (12:26)
[2017-06-09] MEDS ORDERED: NS 500 ML IV 500 ML IV ONE (12:37)
[2017-06-09] MEDS ORDERED: ROCEPHIN 1 GM IV PREMIX * OUT OF STOCK 50 ML IV ONE (12:37)
== END 2017-06-09 15:24 | disposition home or self-care (01) ==
LOC: ER 10:44
DX: J98.09 Other diseases of bronchus, not elsewhere classified (principal)
CPT/HCPCS: 36415; 71010; 80053; 81001; 84295; 85025; 87086; 96365; 96374; 99283; A4222; J0696

== ENCOUNTER 2017-06-20 17:43 | Inpatient (IN) | payer OTHER ==
--- NOTE | 2017-06-20 18:06 | DR.H&P ---
H&P - History & Physical for Day of: H&P Date: 06/20/17 - Chief Complaint Chief Complaint: WEAKNESS, CONFUSION, PAIN ALL OVER - Allergies Allergies/Adverse Reactions: Allergies Allergy/AdvReac Type Severity Reaction Status Date / Time MS Iodine [Iodine] Allergy Unknown Verified 05/19/17 23:36 MS Shrimp Flavor Allergy Unknown Verified 05/19/17 23:36 [Shrimp Flavor] MS Sulfa Drugs [Sulfa Drugs] Allergy Unknown Verified 05/19/17 23:36 steriods Allergy Unknown Uncoded 05/19/17 23:36 - History of Present Illness History of Present Illness: Ms. Denton is a 81-year-old white female who was a direct admit from home through Dr. Phillips's office. Patient has a long history of progressive dementia and Parkinson's disease. Patient has been bedridden for over a year with a severe sacral decubitus. Patient is being admitted for acute renal insufficiency, dehydration, UTI. Patient had outpatient labs which revealed high potent nature anemia and hyperkalemia as well as elevated BUN/creatinine. Patient also had a UTI with urine culture has been treated with one round of antibiotics at home. Plan to admit the patient, hydrate, repeat a.m. labs, blood and urine cultures. - Past Medical History Past Medical History: Alzheimers, Anxiety, Arthritis, Dementia, Diabetes, GERD, Hypertension - Past Surgical History Surgical History: Appendectomy, Cholecystectomy, Ortho Surgery - Family History Family Medical History: Diabetes Mellitus, [place], Coronary Artery Disease, Heart Failure, Hypertension - Review of Systems Constitutional: Weakness Eyes: No Symptoms Reported ENT: No Symptoms Reported Respiratory: Shortness of Breath Cardiovascular: No Symptoms Reported Gastrointestinal: Nausea, Other (POOR PO INTAKE) Genitourinary: Incontinence Musculoskeletal: Back Pain, Leg Pain Skin: Wound Neurological: Weakness, Confusion - Physical Exam Vital Signs: Blood Pressure [Left Arm] 139/78 Blood Pressure [Right Arm] 140/67 Blood Pressure [Standing] 146/97 Blood Pressure [Sitting] 183/88 Blood Pressure [Lying] 162/63 Blood Pressure 154/81 Oriented: Person Ear: Normal Nose: Normal Throat: Normal Respiratory: LLL Diminished Cardiovascular: Normal : Normal Auscultation: Bowel Sounds: Normal Palpation: Normal Tenderness: Normal Skin: Decreased Turgur, Wound (STAGE 3 SACRAL DECUBITUS, HISTORY OF WOUND VAC) Musculoskeletal: Leg, Back:Thoracic, Back:Lumbar, Pelvis, Motor Deficit, Instability Psychiatric: Anxiety Mood Description: Anxious Affect: Anxious Speech Pattern: Clear - Assessment/Plan (1) Acute renal failure Qualifiers: Acute renal failure type: A Status: Acute Plan: ADMIT, IV HYDRATION. ADMISSION LABS CBC CMP UA/UC. BLOOD CULTURES AND CXR. ENCOURAGE PO HYDRATION. CARDENAS CATH CARE, WOUND CARE. RESUME PAIN CONTROL , PERCOCET AND SENTHIL MEDICATION. REPEAT AM LABS, SUPPORTIVE CARE (2) Hyperkalemia Status: Acute Plan: IV HDYRATION, REPEAT AM CMP (3) Mental status alteration Qualifiers: Altered mental status type: transient alteration of awareness Coma depth: C Coma timing: C Qualified Code(s): R40.4 - Transient alteration of awareness Status: Acute Plan: R/O INFECTIOUS CAUSE, CBC BLOOD AND URINE CULTURES. CHEST XRAY (4) UTI (urinary tract infection) Qualifiers: Urinary tract infection type: site unspecified Hematuria presence: without hematuria Indwelling urinary catheter type: I Encounter type: E Qualified Code(s): N39.0 - Urinary tract infection, site not specified Status: Acute Plan: UA/UC ROCEPHIN IGM IV DAILY. IV HYDRATION (5) Arthritis Status: Chronic (6) CHF (congestive heart failure) Qualifiers: Congestive heart failure type: C Congestive heart failure chronicity: C Status: Chronic (7) Decubital ulcer Qualifiers: Pressure ulcer location: P Pressure ulcer stage: P Laterality: L Status: Chronic (8) Dementia Qualifiers: Dementia type: vascular dementia Alzheimer's disease onset: A Dementia behavioral disturbance: D Status: Chronic (9) Diabetes mellitus, type 2 Qualifiers: Diabetes mellitus complication status: D Diabetes mellitus complication detail: D Diabetic retinopathy severity: D Proliferative retinopathy type: P Diabetes mellitus macular edema: D Diabetes mellitus assisted insulin use : D Laterality: L Chronic kidney disease stage: C Status: Chronic (10) GERD (gastroesophageal reflux disease) Qualifiers: Esophagitis presence: E Status: Chronic
[2017-06-20] MEDS ORDERED: STERILE WATER IRRIGATION IR ONE (18:27)
[2017-06-20] MEDS ORDERED: HumuLIN R SUBCUT PRN (21:39)
--- NOTE | 2017-06-20 21:59 | RAD ---
Chest, one view Indication: Dehydration, weakness subparagraph comparison: 06/09/2017 Findings: Normal heart size. The lungs are clear without focal infiltrates or significant pleural ef fusion. Bony thorax is unremarkable. Impression: No acute cardiopulmonary disease. Reported By:
[2017-06-20] MEDS: NS 1000 ML 1,000 ML IV SCH (22:32)
[2017-06-20] MEDS: ROCEPHIN VIAL 1 GM 1 GM in NS 50 ML IV + SPIKE MINIBAG* 50 ML IV SCH (22:33)
[2017-06-20] MEDS: ATIVAN TAB 0.5 MG PO PRN (22:34)
[2017-06-20] MEDS: SNACK - Diabetic Appropriate PO SCH (22:35)
[2017-06-20] MEDS: COLACE CAP 100 MG PO SCH (22:35)
[2017-06-21 03:36] LABS: BILIRUBIN,URINE NEGATIVE (NEGATIVE); BLOOD/HEMOGLOBIN,URINE 3+ (NEGATIVE); GLUCOSE, URINE NEGATIVE (NEGATIVE); KETONES,URINE NEGATIVE (NEGATIVE); LEUKOCYTE ESTERASE ,URINE 3+ (NEGATIVE); NITRITES,URINE NEGATIVE (NEGATIVE); PROTEIN,URINE 2+ (NEGATIVE); UROBILINOGEN,URINE NORMAL (NORMAL)
[2017-06-21 03:41] LABS: COLOR,URINE YELLOW (YELLOW)
[2017-06-21 03:42] LABS: APPEARANCE,URINE HAZY (CLEAR); BACTERIA,URINE 2+ /HPF (NEGATIVE); SQUAMOUS EPITHELIAL CELL,UR RARE /HPF (NEGATIVE); YEAST,URINE MANY /HPF (NEGATIVE)
[2017-06-21 06:18] LABS: BASOPHILS # (AUTO) 0.1 X10^3/uL (0.0-0.1); BASOPHILS % (AUTO) 0.9 % (0.2-1.0); EOSINOPHILS # (AUTO) 0.1 x10^3/uL (0.0-0.2); EOSINOPHILS % (AUTO) 0.5 % (0.9-2.9); HEMATOCRIT 31.2 % (36.0-47.0); LYMPHOCYTES # (AUTO) 0.8 X10^3/uL (1.3-2.9); LYMPHOCYTES % (AUTO) 6.4 % (21.0-51.0); MEAN CORPUSCULAR HEMOGLOBIN 29.5 pg (27.0-34.0); MEAN CORPUSCULAR HGB CONC 35.4 g/dL (33.0-35.0); MEAN CORPUSCULAR VOLUME 83.5 fL (80.0-100.0); MEAN PLATELET VOLUME 7.3 fL (7.4-11.0); MONOCYTES # (AUTO) 0.5 x10^3/uL (0.3-0.8); MONOCYTES % (AUTO) 3.6 % (0.0-13.0); NEUTROPHILS # (AUTO) 11.2 x10^3/uL (2.2-4.8); NEUTROPHILS % (AUTO) 88.6 % (42.0-75.0); PLATELET COUNT 480 X10^3/uL (150.0-450.0); RED BLOOD COUNT 3.74 X10^6/uL (3.5-5.4); RED CELL DISTRIBUTION WIDTH 16.3 % (11.6-16.5); WHITE BLOOD COUNT 12.6 X10^3/uL (3.6-10.0)
[2017-06-21 06:29] LABS: ALANINE AMINOTRANSFERASE 7 Units/L (12-78); ALBUMIN 2.4 g/dL (3.4-5.0); ALKALINE PHOSPHATASE 77 Units/L (46-116); ASPARTATE AMINO TRANSFERASE 29 Units/L (15-37); BLOOD UREA NITROGEN 54 mg/dL (7-18); CALCIUM 8.2 mg/dL (8.5-10.1); CARBON DIOXIDE 25.7 mmol/L (21-32); CHLORIDE 88 mmol/L (98-107); COR CA(FOR HYPOALB) 9.5 mg/dL (8.5-10.1); GLUCOSE 96 mg/dL (65-99); TOTAL PROTEIN 6.5 g/dL (6.4-8.2); eGFR BLACK RACES 25 (>60); eGFR NON BLACK RACES 21 (>60)
[2017-06-21 06:40] LABS: SODIUM 122 mmol/L (136-145)
[2017-06-21] MEDS: NS 1000 ML 1,000 ML IV SCH ×2 (11:38→16:57)
[2017-06-21] MEDS: PERCOCET TAB 5/325 MG PO PRN ×2 (12:50→21:33)
[2017-06-21] MEDS: ATIVAN TAB 0.5 MG PO PRN ×2 (12:52→21:33)
[2017-06-21] MEDS: SNACK - Diabetic Appropriate PO SCH (21:44)
[2017-06-21] MEDS: COLACE CAP 100 MG PO SCH (21:44)
[2017-06-21] MEDS: ROCEPHIN VIAL 1 GM 1 GM in NS 50 ML IV + SPIKE MINIBAG* 50 ML IV SCH (21:57)
[2017-06-22 02:51] VITALS: BMI 16.6
[2017-06-22] MEDS ORDERED: ROBITUSSIN DM PO PRN (04:26)
[2017-06-22] MEDS: PERCOCET TAB 5/325 MG PO PRN (04:34)
[2017-06-22] MEDS: NS 1000 ML 1,000 ML IV SCH ×2 (06:19→14:42)
[2017-06-22 07:18] LABS: BASOPHILS # (AUTO) 0.1 X10^3/uL (0.0-0.1); BASOPHILS % (AUTO) 0.7 % (0.2-1.0); HEMATOCRIT 36.2 % (36.0-47.0); HEMOGLOBIN 12.6 g/dL (12.0-16.0); LYMPHOCYTES # (AUTO) 1.1 X10^3/uL (1.3-2.9); LYMPHOCYTES % (AUTO) 9.5 % (21.0-51.0); MEAN CORPUSCULAR HEMOGLOBIN 29.8 pg (27.0-34.0); MEAN CORPUSCULAR HGB CONC 34.7 g/dL (33.0-35.0); MEAN CORPUSCULAR VOLUME 85.9 fL (80.0-100.0); MEAN PLATELET VOLUME 7.7 fL (7.4-11.0); MONOCYTES # (AUTO) 0.6 x10^3/uL (0.3-0.8); MONOCYTES % (AUTO) 5.2 % (0.0-13.0); NEUTROPHILS # (AUTO) 9.8 x10^3/uL (2.2-4.8); NEUTROPHILS % (AUTO) 84.6 % (42.0-75.0); PLATELET COUNT 624 X10^3/uL (150.0-450.0); RED BLOOD COUNT 4.22 X10^6/uL (3.5-5.4); RED CELL DISTRIBUTION WIDTH 16.6 % (11.6-16.5); WHITE BLOOD COUNT 11.6 X10^3/uL (3.6-10.0)
[2017-06-22 07:24] LABS: ALBUMIN 2.8 g/dL (3.4-5.0); CALCIUM 8.7 mg/dL (8.5-10.1); CARBON DIOXIDE 22.2 mmol/L (21-32); COR CA(FOR HYPOALB) 9.7 mg/dL (8.5-10.1); CREATININE 2.11 mg/dL (0.55-1.02); TOTAL PROTEIN 7.2 g/dL (6.4-8.2)
[2017-06-22 07:25] LABS: PLATELET MORPHOLOGY COMMENT NORMAL (NORMAL)
[2017-06-22] MEDS: MORPHINE SULFATE INJ 2 MG IVP PRN ×3 (08:30→21:38)
[2017-06-22] MEDS: TRANSDERM-SCOP TD SCH (08:30)
[2017-06-22] MEDS: CHECK PATCH XX SCH ×2 (08:33→21:38)
[2017-06-22] MEDS ORDERED: ISOPTO ATROPINE AFFEYE ONE (08:47)
[2017-06-22] MEDS ORDERED: VOLTAREN 1 % GEL MULTI DOSE TUBE TOP PRN (09:21)
--- NOTE | 2017-06-22 09:39 | RAD ---
HISTORY: Respiratory distress Study: Chest one view Comparison: June 20, 2017 Findings: The trachea is midline. The cardiac silhouette is unremarkable. The lungs are mildly hyperinflated but free of acute alveolar infiltrates. No pleural effusions are identified.. The bony thorax is u nremarkable. IMPRESSION: Lungs mildly hyperinflated but clear Reported By:
[2017-06-22] MEDS ORDERED: AMBIEN PO PRN (11:17)
[2017-06-22] MEDS ORDERED: NORCO 10/325 TAB PO PRN (11:17)
[2017-06-22] MEDS ORDERED: HYDROCHLOROTHIAZIDE PO SCH (11:30)
[2017-06-22] MEDS ORDERED: PATIENT'S HOME MEDICATION (Omeprazole [Omeprazole] 1 CAP) PO SCH (11:30)
[2017-06-22] MEDS ORDERED: [UNRECOGNIZED DRUG - OTHER] PO SCH (11:30)
[2017-06-22] MEDS ORDERED: [UNRECOGNIZED DRUG - REMARK] ENOSTRIL SCH (11:30)
[2017-06-22] MEDS ORDERED: BENAZEPRIL PO SCH (11:30)
[2017-06-22] MEDS ORDERED: GLUCOPHAGE ONE ×2 (11:44→21:13)
[2017-06-22] MEDS: REQUIP PO SCH ×2 (11:54→21:37)
[2017-06-22] MEDS: EFFEXOR XR 37.5 MG CAP PO SCH (11:54)
[2017-06-22] MEDS: GLUCOPHAGE PO SCH ×2 (11:54→21:37)
[2017-06-22] MEDS: SYNTHROID 75 mcg TAB PO SCH (11:55)
[2017-06-22] MEDS: XOPENEX 1.25 MG/3 ML NEBULE NEB SCH ×3 (12:22→21:00)
[2017-06-22] MEDS: SINEMET (PLAIN) 25/250 MG PO SCH ×3 (12:32→21:39)
[2017-06-22] MEDS: XANAX PO PRN ×2 (14:40→21:37)
[2017-06-22] MEDS: SNACK - Diabetic Appropriate PO SCH (20:23)
[2017-06-22] MEDS: ROCEPHIN VIAL 1 GM 1 GM in NS 50 ML IV + SPIKE MINIBAG* 50 ML IV SCH (21:37)
[2017-06-22] MEDS: ZyPREXA TAB 5 MG PO SCH (21:37)
[2017-06-22] MEDS: FLONASE NASAL SPRAY ENOSTRIL SCH (21:38)
[2017-06-22] MEDS: COLACE CAP 100 MG PO SCH (21:38)
[2017-06-23] MEDS: NS 1000 ML 1,000 ML IV SCH ×3 (05:39→23:20)
[2017-06-23] MEDS: MORPHINE SULFATE INJ 2 MG IVP PRN ×3 (06:00→16:35)
[2017-06-23 06:37] LABS: BASOPHILS # (AUTO) 0.1 X10^3/uL (0.0-0.1); BASOPHILS % (AUTO) 0.8 % (0.2-1.0); EOSINOPHILS # (AUTO) 0.1 x10^3/uL (0.0-0.2); EOSINOPHILS % (AUTO) 0.7 % (0.9-2.9); HEMOGLOBIN 11.7 g/dL (12.0-16.0); LYMPHOCYTES % (AUTO) 10.1 % (21.0-51.0); MEAN CORPUSCULAR HEMOGLOBIN 29.3 pg (27.0-34.0); MEAN CORPUSCULAR HGB CONC 34.5 g/dL (33.0-35.0); MEAN PLATELET VOLUME 8.3 fL (7.4-11.0); MONOCYTES # (AUTO) 0.5 x10^3/uL (0.3-0.8); MONOCYTES % (AUTO) 5.5 % (0.0-13.0); NEUTROPHILS % (AUTO) 82.9 % (42.0-75.0); PLATELET COUNT 425 X10^3/uL (150.0-450.0); RED CELL DISTRIBUTION WIDTH 16.3 % (11.6-16.5)
[2017-06-23 06:47] LABS: ALBUMIN 2.4 g/dL (3.4-5.0); CALCIUM 8.1 mg/dL (8.5-10.1); CARBON DIOXIDE 22.5 mmol/L (21-32); COR CA(FOR HYPOALB) 9.4 mg/dL (8.5-10.1); CREATININE 1.51 mg/dL (0.55-1.02); TOTAL PROTEIN 6.2 g/dL (6.4-8.2)
[2017-06-23 07:13] LABS: WHITE BLOOD COUNT 9.7 X10^3/uL (3.6-10.0)
[2017-06-23 07:14] LABS: BAND NEUTROPHILS % 3 % (0-10); PLATELET MORPHOLOGY COMMENT NORMAL (NORMAL)
[2017-06-23] MEDS ORDERED: GLUCOPHAGE ONE ×2 (08:13→21:27)
[2017-06-23] MEDS: CHECK PATCH XX SCH ×2 (09:06→21:49)
[2017-06-23] MEDS: LOTENSIN TAB 10 MG PO SCH (09:07)
[2017-06-23] MEDS: FLONASE NASAL SPRAY ENOSTRIL SCH ×2 (09:07→21:50)
[2017-06-23] MEDS: PriLOSEC PO SCH (09:07)
[2017-06-23] MEDS: REQUIP PO SCH ×2 (09:07→21:33)
[2017-06-23] MEDS: HYDROCHLOROTHIAZIDE 12.5 MG CAP PO SCH (09:07)
[2017-06-23] MEDS: EFFEXOR XR 37.5 MG CAP PO SCH (09:07)
[2017-06-23] MEDS: GLUCOPHAGE PO SCH ×2 (09:07→21:32)
[2017-06-23] MEDS: SYNTHROID 75 mcg TAB PO SCH (09:08)
[2017-06-23] MEDS: SINEMET (PLAIN) 25/250 MG PO SCH ×4 (09:08→21:33)
[2017-06-23] MEDS: XOPENEX 1.25 MG/3 ML NEBULE NEB SCH ×4 (09:08→21:25)
[2017-06-23] MEDS: XANAX PO PRN (11:25)
[2017-06-23] MEDS: ATIVAN TAB 0.5 MG PO PRN (17:14)
[2017-06-23] MEDS: ROCEPHIN VIAL 1 GM 1 GM in NS 50 ML IV + SPIKE MINIBAG* 50 ML IV SCH (21:32)
[2017-06-23] MEDS: ZyPREXA TAB 5 MG PO SCH (21:33)
[2017-06-23] MEDS: PERCOCET TAB 5/325 MG PO PRN (21:33)
[2017-06-23] MEDS: SNACK - Diabetic Appropriate PO SCH (21:48)
[2017-06-23] MEDS: COLACE CAP 100 MG PO SCH (21:49)
[2017-06-24 07:57] LABS: BASOPHILS # (AUTO) 0.1 X10^3/uL (0.0-0.1); BASOPHILS % (AUTO) 0.6 % (0.2-1.0); EOSINOPHILS # (AUTO) 0.2 x10^3/uL (0.0-0.2); EOSINOPHILS % (AUTO) 2.1 % (0.9-2.9); HEMATOCRIT 30.6 % (36.0-47.0); HEMOGLOBIN 10.5 g/dL (12.0-16.0); LYMPHOCYTES # (AUTO) 1.2 X10^3/uL (1.3-2.9); LYMPHOCYTES % (AUTO) 14.8 % (21.0-51.0); MEAN CORPUSCULAR HEMOGLOBIN 29.3 pg (27.0-34.0); MEAN CORPUSCULAR HGB CONC 34.3 g/dL (33.0-35.0); MEAN CORPUSCULAR VOLUME 85.5 fL (80.0-100.0); MONOCYTES # (AUTO) 0.6 x10^3/uL (0.3-0.8); MONOCYTES % (AUTO) 7.2 % (0.0-13.0); NEUTROPHILS % (AUTO) 75.3 % (42.0-75.0); PLATELET COUNT 401 X10^3/uL (150.0-450.0); RED BLOOD COUNT 3.58 X10^6/uL (3.5-5.4); RED CELL DISTRIBUTION WIDTH 16.3 % (11.6-16.5)
[2017-06-24 08:00] LABS: PLATELET MORPHOLOGY COMMENT NORMAL (NORMAL)
[2017-06-24 08:04] LABS: ALANINE AMINOTRANSFERASE 6 Units/L (12-78); ALBUMIN 2.3 g/dL (3.4-5.0); ALKALINE PHOSPHATASE 69 Units/L (46-116); ASPARTATE AMINO TRANSFERASE 13 Units/L (15-37); BLOOD UREA NITROGEN 27 mg/dL (7-18); CALCIUM 8.1 mg/dL (8.5-10.1); CARBON DIOXIDE 25.9 mmol/L (21-32); CHLORIDE 100 mmol/L (98-107); COR CA(FOR HYPOALB) 9.5 mg/dL (8.5-10.1); CREATININE 0.94 mg/dL (0.55-1.02); GLUCOSE 94 mg/dL (65-99); SODIUM 132 mmol/L (136-145); TOTAL PROTEIN 6.1 g/dL (6.4-8.2); eGFR BLACK RACES > 60 (>60); eGFR NON BLACK RACES > 60 (>60)
[2017-06-24] MEDS ORDERED: GLUCOPHAGE ONE ×2 (08:06→20:55)
[2017-06-24] MEDS: XOPENEX 1.25 MG/3 ML NEBULE NEB SCH ×4 (08:21→21:23)
[2017-06-24] MEDS: PriLOSEC PO SCH (08:45)
[2017-06-24] MEDS: REQUIP PO SCH ×2 (08:45→21:26)
[2017-06-24] MEDS: HYDROCHLOROTHIAZIDE 12.5 MG CAP PO SCH ×2 (08:45→08:55)
[2017-06-24] MEDS: FLONASE NASAL SPRAY ENOSTRIL SCH ×2 (08:45→21:27)
[2017-06-24] MEDS: XANAX PO PRN ×3 (08:45→23:45)
[2017-06-24] MEDS: SINEMET (PLAIN) 25/250 MG PO SCH ×4 (08:45→21:25)
[2017-06-24] MEDS: GLUCOPHAGE PO SCH ×2 (08:45→21:31)
[2017-06-24] MEDS: SYNTHROID 75 mcg TAB PO SCH (08:45)
[2017-06-24] MEDS: EFFEXOR XR 37.5 MG CAP PO SCH (08:45)
[2017-06-24] MEDS: CHECK PATCH XX SCH ×2 (08:48→21:23)
[2017-06-24] MEDS: LOTENSIN TAB 10 MG PO SCH (08:53)
[2017-06-24] MEDS: NS 1000 ML 1,000 ML IV SCH (08:54)
[2017-06-24] MEDS: MORPHINE SULFATE INJ 2 MG IVP PRN ×3 (10:00→21:32)
[2017-06-24] MEDS: ROCEPHIN VIAL 1 GM 1 GM in NS 50 ML IV + SPIKE MINIBAG* 50 ML IV SCH (21:24)
[2017-06-24] MEDS: COLACE CAP 100 MG PO SCH (21:25)
[2017-06-24] MEDS: ZyPREXA TAB 5 MG PO SCH (21:28)
[2017-06-24] MEDS: SNACK - Diabetic Appropriate PO SCH (21:37)
[2017-06-25] MEDS: NS 1000 ML 1,000 ML IV SCH ×4 (05:54→21:40)
[2017-06-25] MEDS: TRANSDERM-SCOP TD SCH (06:27)
[2017-06-25 06:35] LABS: BASOPHILS % (AUTO) 0.6 % (0.2-1.0); EOSINOPHILS # (AUTO) 0.1 x10^3/uL (0.0-0.2); EOSINOPHILS % (AUTO) 1.9 % (0.9-2.9); HEMATOCRIT 40.5 % (36.0-47.0); HEMOGLOBIN 13.8 g/dL (12.0-16.0); LYMPHOCYTES # (AUTO) 0.6 X10^3/uL (1.3-2.9); LYMPHOCYTES % (AUTO) 9.6 % (21.0-51.0); MEAN CORPUSCULAR HEMOGLOBIN 29.4 pg (27.0-34.0); MEAN CORPUSCULAR HGB CONC 34.1 g/dL (33.0-35.0); MEAN CORPUSCULAR VOLUME 86.1 fL (80.0-100.0); MEAN PLATELET VOLUME 7.5 fL (7.4-11.0); MONOCYTES # (AUTO) 0.4 x10^3/uL (0.3-0.8); MONOCYTES % (AUTO) 6.7 % (0.0-13.0); NEUTROPHILS # (AUTO) 5.1 x10^3/uL (2.2-4.8); NEUTROPHILS % (AUTO) 81.2 % (42.0-75.0); PLATELET COUNT 316 X10^3/uL (150.0-450.0); RED CELL DISTRIBUTION WIDTH 16.4 % (11.6-16.5); WHITE BLOOD COUNT 6.3 X10^3/uL (3.6-10.0)
[2017-06-25 06:40] LABS: ALANINE AMINOTRANSFERASE 6 Units/L (12-78); ALBUMIN 2.4 g/dL (3.4-5.0); ALKALINE PHOSPHATASE 69 Units/L (46-116); ASPARTATE AMINO TRANSFERASE 13 Units/L (15-37); BLOOD UREA NITROGEN 18 mg/dL (7-18); CALCIUM 8.1 mg/dL (8.5-10.1); CHLORIDE 102 mmol/L (98-107); COR CA(FOR HYPOALB) 9.4 mg/dL (8.5-10.1); CREATININE 0.67 mg/dL (0.55-1.02); GLUCOSE 101 mg/dL (65-99); SODIUM 134 mmol/L (136-145); TOTAL PROTEIN 6.4 g/dL (6.4-8.2); eGFR BLACK RACES > 60 (>60); eGFR NON BLACK RACES > 60 (>60)
[2017-06-25] MEDS ORDERED: GLUCOPHAGE ONE ×2 (07:39→20:56)
[2017-06-25] MEDS: REQUIP PO SCH ×2 (08:27→21:42)
[2017-06-25] MEDS: LOTENSIN TAB 10 MG PO SCH (08:28)
[2017-06-25] MEDS: SYNTHROID 75 mcg TAB PO SCH (08:28)
[2017-06-25] MEDS: EFFEXOR XR 37.5 MG CAP PO SCH (08:28)
[2017-06-25] MEDS: CHECK PATCH XX SCH ×2 (08:29→21:44)
[2017-06-25] MEDS: GLUCOPHAGE PO SCH ×2 (08:29→21:42)
[2017-06-25] MEDS: PriLOSEC PO SCH (08:29)
[2017-06-25] MEDS: HYDROCHLOROTHIAZIDE 12.5 MG CAP PO SCH (08:29)
[2017-06-25] MEDS: SINEMET (PLAIN) 25/250 MG PO SCH ×4 (08:29→21:43)
[2017-06-25] MEDS: FLONASE NASAL SPRAY ENOSTRIL SCH ×2 (08:30→21:45)
[2017-06-25] MEDS: XOPENEX 1.25 MG/3 ML NEBULE NEB SCH ×5 (08:55→20:37)
[2017-06-25] MEDS: PERCOCET TAB 5/325 MG PO PRN ×2 (14:56→21:42)
[2017-06-25] MEDS: MORPHINE SULFATE INJ 2 MG IVP PRN (19:15)
[2017-06-25] MEDS: SNACK - Diabetic Appropriate PO SCH (20:37)
[2017-06-25] MEDS: ROCEPHIN VIAL 1 GM 1 GM in NS 50 ML IV + SPIKE MINIBAG* 50 ML IV SCH (21:40)
[2017-06-25] MEDS: COLACE CAP 100 MG PO SCH (21:42)
[2017-06-25] MEDS: ZyPREXA TAB 5 MG PO SCH (21:42)
[2017-06-25] MEDS: XANAX PO PRN (21:43)
[2017-06-26] MEDS: NS 1000 ML 1,000 ML IV SCH ×3 (04:46→17:06)
[2017-06-26 06:09] LABS: BASOPHILS % (AUTO) 0.7 % (0.2-1.0); EOSINOPHILS # (AUTO) 0.2 x10^3/uL (0.0-0.2); EOSINOPHILS % (AUTO) 2.6 % (0.9-2.9); HEMATOCRIT 30.9 % (36.0-47.0); HEMOGLOBIN 10.6 g/dL (12.0-16.0); MEAN CORPUSCULAR HEMOGLOBIN 29.5 pg (27.0-34.0); MEAN CORPUSCULAR HGB CONC 34.4 g/dL (33.0-35.0); MEAN CORPUSCULAR VOLUME 85.8 fL (80.0-100.0); MEAN PLATELET VOLUME 7.7 fL (7.4-11.0); MONOCYTES # (AUTO) 0.6 x10^3/uL (0.3-0.8); MONOCYTES % (AUTO) 9.9 % (0.0-13.0); NEUTROPHILS # (AUTO) 4.5 x10^3/uL (2.2-4.8); NEUTROPHILS % (AUTO) 70.8 % (42.0-75.0); PLATELET COUNT 252 X10^3/uL (150.0-450.0); RED CELL DISTRIBUTION WIDTH 16.5 % (11.6-16.5); WHITE BLOOD COUNT 6.4 X10^3/uL (3.6-10.0)
[2017-06-26] MEDS ORDERED: GLUCOPHAGE ONE ×2 (08:10→20:37)
[2017-06-26] MEDS: XOPENEX 1.25 MG/3 ML NEBULE NEB SCH ×4 (08:22→20:44)
[2017-06-26] MEDS: LOTENSIN TAB 10 MG PO SCH (09:00)
[2017-06-26] MEDS: SINEMET (PLAIN) 25/250 MG PO SCH ×4 (09:05→21:07)
[2017-06-26] MEDS: GLUCOPHAGE PO SCH ×2 (09:05→21:06)
[2017-06-26] MEDS: REQUIP PO SCH ×2 (09:05→21:07)
[2017-06-26] MEDS: EFFEXOR XR 37.5 MG CAP PO SCH (09:06)
[2017-06-26] MEDS: CHECK PATCH XX SCH ×2 (09:07→21:09)
[2017-06-26] MEDS: PriLOSEC PO SCH (09:07)
[2017-06-26] MEDS: FLONASE NASAL SPRAY ENOSTRIL SCH ×2 (09:08→21:09)
[2017-06-26] MEDS: SYNTHROID 75 mcg TAB PO SCH (09:08)
[2017-06-26] MEDS: HYDROCHLOROTHIAZIDE 12.5 MG CAP PO SCH (09:08)
[2017-06-26] MEDS: PERCOCET TAB 5/325 MG PO PRN ×3 (09:32→22:37)
[2017-06-26 10:45] LABS: BILIRUBIN,URINE NEGATIVE (NEGATIVE); BLOOD/HEMOGLOBIN,URINE 5+ (NEGATIVE); GLUCOSE, URINE NEGATIVE (NEGATIVE); KETONES,URINE 1+ (NEGATIVE); LEUKOCYTE ESTERASE ,URINE 3+ (NEGATIVE); NITRITES,URINE NEGATIVE (NEGATIVE); PROTEIN,URINE 2+ (NEGATIVE); UROBILINOGEN,URINE NORMAL (NORMAL)
[2017-06-26 11:02] LABS: APPEARANCE,URINE HAZY (CLEAR); COLOR,URINE YELLOW (YELLOW); RBC,URINE 0-2 /HPF (NEGATIVE)
[2017-06-26 11:03] LABS: BACTERIA,URINE TRACE /HPF (NEGATIVE); SQUAMOUS EPITHELIAL CELL,UR RARE /HPF (NEGATIVE)
[2017-06-26] MEDS: ROCEPHIN VIAL 1 GM 1 GM in NS 50 ML IV + SPIKE MINIBAG* 50 ML IV SCH (21:05)
[2017-06-26] MEDS: SNACK - Diabetic Appropriate PO SCH (21:05)
[2017-06-26] MEDS: ZyPREXA TAB 5 MG PO SCH (21:06)
[2017-06-26] MEDS: XANAX PO PRN (21:06)
[2017-06-26] MEDS: COLACE CAP 100 MG PO SCH (21:07)
[2017-06-27] MEDS: MORPHINE SULFATE INJ 2 MG IVP PRN ×2 (01:18→11:39)
[2017-06-27] MEDS ORDERED: GLUCOPHAGE ONE ×2 (07:30→20:19)
[2017-06-27] MEDS: CHECK PATCH XX SCH ×2 (08:10→21:32)
[2017-06-27] MEDS: GLUCOPHAGE PO SCH ×2 (08:10→21:34)
[2017-06-27] MEDS: SINEMET (PLAIN) 25/250 MG PO SCH ×4 (08:10→21:31)
[2017-06-27] MEDS: EFFEXOR XR 37.5 MG CAP PO SCH (08:10)
[2017-06-27] MEDS: FLONASE NASAL SPRAY ENOSTRIL SCH ×2 (08:10→21:33)
[2017-06-27] MEDS: HYDROCHLOROTHIAZIDE 12.5 MG CAP PO SCH (08:10)
[2017-06-27] MEDS: PriLOSEC PO SCH (08:10)
[2017-06-27] MEDS: SYNTHROID 75 mcg TAB PO SCH (08:10)
[2017-06-27] MEDS: XANAX PO PRN ×3 (08:10→21:31)
[2017-06-27] MEDS: REQUIP PO SCH ×2 (08:10→21:38)
[2017-06-27] MEDS: LOTENSIN TAB 10 MG PO SCH (08:10)
[2017-06-27] MEDS: XOPENEX 1.25 MG/3 ML NEBULE NEB SCH ×4 (09:14→21:06)
[2017-06-27] MEDS ORDERED: PHARMACY CONSULT - DOSE _____ XX SCH (12:00)
[2017-06-27] MEDS: NS 1000 ML 1,000 ML IV PRN (12:28)
[2017-06-27] MEDS: DIFLUCAN 200 MG IV PREMIX* 200 MG/100 ML BAG IV SCH (13:11)
[2017-06-27] MEDS: PERCOCET TAB 5/325 MG PO PRN ×2 (13:50→21:34)
--- NOTE | 2017-06-27 18:31 | PCM.PROG ---
Progress Note - Progress Note for Day of Date: 06/27/17 - Subjective Subjective: Mrs. Denton is a 81-year-old white female with a history of multiple chronic medical conditions who was admitted to [facility] on June 20, 2017 with severe dehydration and UTI treatment. Patient's family was concerned regarding possible need for further surgical intervention with regards to a large sacral decubitus, chronic ulcer versus admitting the patient under outpatient hospice. The patient has been followed by Dr. Curtis. Plan to consult with him prior to admitting to home hospice services. We will continue gentle hydration. We did not collect labs this a.m., plan to repeat CBC and CMP on Tuesday. - Past Medical Family Social History Past Med/Fam/Surg Hx: No changes since H&P Allergies: Allergies Iodine and Iodide Containing Produc Allergy (Verified 06/21/17 06:31) Sulfa (Sulfonamide Antibiotics) [SULFA] Allergy (Verified 06/21/17 06:31) steriods Allergy (Unknown, Uncoded 05/19/17 23:36) Shrimp Flavor Allergy (Uncoded 06/21/17 06:31) - Review of Systems ROS: No change since H&P - Vital Signs and I&O's Vital Signs: Temperature 98.5 F Pulse Rate [Right Radial] 82 Pulse Rate 80 Respiratory Rate 14 Blood Pressure [Left Arm] 85/43 Blood Pressure [Right Arm] 107/53 Blood Pressure [Standing] 146/97 Blood Pressure [Sitting] 183/88 Blood Pressure [Lying] 162/63 Blood Pressure 154/81 O2 Sat by Pulse Oximetry 100 Intake and Output: Intake & Output 06/25/17 06/26/17 06/27/17 06/28/17 11:59 11:59 11:59 11:59 Intake Total 1696 1234 1554 340 Output Total 1050 1250 700 650 Balance 912 -31 257 -503 - Physical Exam Oriented: Person Ear: Normal Nose: Normal Throat: Normal Respiratory: Diminished Cardiovascular: Normal : Normal Auscultation: Bowel Sounds: Normal Tenderness: Normal Skin: Decreased Turgur, Wound (STAGE 3 SACRAL DECUBITUS, HISTORY OF WOUND VAC) Musculoskeletal: Leg, Back:Thoracic, Back:Lumbar, Pelvis, Motor Deficit, Instability Speech Pattern: Unclear - Laboratory and Diagnostics Result Diagrams: 06/26/17 05:08 06/25/17 04:50 Labs: 06/26/17 10:37 Urine,Catheterized Urine Culture - Final 06/21/17 05:55 Blood Blood Culture - Final 06/21/17 03:27 Urine,Clean Catch Urine Culture - Final Laboratory WBC 6.4 X10^3/uL (3.6-10.0) 06/26/17 05:08 RBC 3.60 X10^6/uL (3.5-5.4) 06/26/17 05:08 Hgb 10.6 g/dL (12.0-16.0) L 06/26/17 05:08 Hct 30.9 % (36.0-47.0) L 06/26/17 05:08 MCV 85.8 fL (80.0-100.0) 06/26/17 05:08 MCH 29.5 pg (27.0-34.0) 06/26/17 05:08 MCHC 34.4 g/dL (33.0-35.0) 06/26/17 05:08 RDW 16.5 % (11.6-16.5) 06/26/17 05:08 Plt Count 252 X10^3/uL (150.0-450.0) 06/26/17 05:08 Plt Count Comment Adequate (ADEQUATE) 06/24/17 07:40 MPV 7.7 fL (7.4-11.0) 06/26/17 05:08 Neut % 70.8 % (42.0-75.0) 06/26/17 05:08 Lymph % 16.0 % (21.0-51.0) L 06/26/17 05:08 [place] % 9.9 % (0.0-13.0) 06/26/17 05:08 Eos % 2.6 % (0.9-2.9) 06/26/17 05:08 Baso % 0.7 % (0.2-1.0) 06/26/17 05:08 Neut # 4.5 x10^3/uL (2.2-4.8) 06/26/17 05:08 Lymph # 1.0 X10^3/uL (1.3-2.9) L 06/26/17 05:08 [place] # 0.6 x10^3/uL (0.3-0.8) 06/26/17 05:08 Eos # 0.2 x10^3/uL (0.0-0.2) 06/26/17 05:08 Baso # 0.0 X10^3/uL (0.0-0.1) 06/26/17 05:08 Absolute Nucleated RBC 0.3 /100WBC 06/26/17 05:08 Total Counted 100 06/23/17 05:25 Neutrophils % (Manual) 82 % (39-76) H 06/23/17 05:25 Band Neutrophils % 3 % (0-10) 06/23/17 05:25 Lymphocytes % (Manual) 12 % (13-43) L 06/23/17 05:25 Monocytes % (Manual) 3 % (4-9) L 06/23/17 05:25 Plt Clumps, EDTA Rare 06/24/17 07:40 Plt Morphology Comment Normal (NORMAL) 06/24/17 07:40 RBC Morphology Normal (NORMAL) 06/24/17 07:40 Sodium 134 mmol/L (136-145) L 06/25/17 04:50 Corrected Sodium TNP 06/25/17 04:50 Potassium 4.3 mmol/L (3.5-5.1) 06/25/17 04:50 Chloride 102 mmol/L (98-107) 06/25/17 04:50 Carbon Dioxide 26.0 mmol/L (21-32) 06/25/17 04:50 BUN 18 mg/dL (7-18) 06/25/17 04:50 Creatinine 0.67 mg/dL (0.55-1.02) 06/25/17 04:50 Est GFR (MDRD) Af Amer > 60 (>60) 06/25/17 04:50 Est GFR (MDRD) Non-Af > 60 (>60) 06/25/17 04:50 Glucose 101 mg/dL (65-99) H 06/25/17 04:50 Calcium 8.1 mg/dL (8.5-10.1) L 06/25/17 04:50 Corrected Calcium 9.4 mg/dL (8.5-10.1) 06/25/17 04:50 Total Bilirubin 0.30 mg/dL (0.2-1.0) 06/25/17 04:50 AST 13 Units/L (15-37) L 06/25/17 04:50 ALT 6 Units/L (12-78) L 06/25/17 04:50 Alkaline Phosphatase 69 Units/L (46-116) 06/25/17 04:50 Total Protein 6.4 g/dL (6.4-8.2) 06/25/17 04:50 Albumin 2.4 g/dL (3.4-5.0) L 06/25/17 04:50 Globulin 4.0 g/dL (2.5-4.5) 06/25/17 04:50 Albumin/Globulin Ratio 0.6 Ratio (1.1-2.1) L 06/25/17 04:50 Specimen Type Clean catch urine 06/26/17 10:37 Urine Color Yellow (YELLOW) 06/26/17 10:37 Urine Appearance Hazy (CLEAR) 06/26/17 10:37 Urine pH 5.0 (5.0 - 8.0) 06/26/17 10:37 Ur Specific [place] 1.015 (1.000-1.030) 06/26/17 10:37 Urine Protein 2+ (NEGATIVE) 06/26/17 10:37 Urine Glucose (UA) Negative (NEGATIVE) 06/26/17 10:37 Urine Ketones 1+ (NEGATIVE) 06/26/17 10:37 Urine Occult Blood 5+ (NEGATIVE) 06/26/17 10:37 Urine Nitrite Negative (NEGATIVE) 06/26/17 10:37 Urine Bilirubin Negative (NEGATIVE) 06/26/17 10:37 Urine Urobilinogen Normal (NORMAL) 06/26/17 10:37 Ur Leukocyte Esterase 3+ (NEGATIVE) 06/26/17 10:37 Urine RBC 0-2 /HPF (NEGATIVE) 06/26/17 10:37 Urine WBC 20-25 /HPF (NEGATIVE) 06/26/17 10:37 Ur Squamous Epith Cells Rare /HPF (NEGATIVE) 06/26/17 10:37 Urine Bacteria Trace /HPF (NEGATIVE) 06/26/17 10:37 Urine Yeast Many /HPF (NEGATIVE) 06/21/17 03:27 Ur Culture Indicated? Yes/culture set up 06/26/17 10:37 - Plan (1) Acute renal failure Status: Acute Qualifiers: Acute renal failure type: A Plan: GENTLY IV HYDRATION, PAIN CONTROL,. REPEAT AM LABS, SUPPORTIVE CARE (2) Mental status alteration Status: Acute Qualifiers: Altered mental status type: transient alteration of awareness Coma depth: C Coma timing: C Qualified Code(s): R40.4 - Transient alteration of awareness Plan: R/O INFECTIOUS CAUSE, CBC BLOOD AND URINE CULTURES. CHEST XRAY (3) Arthritis Status: Chronic (4) CHF (congestive heart failure) Status: Chronic Qualifiers: Congestive heart failure type: C Congestive heart failure chronicity: C (5) Decubital ulcer Status: Chronic Qualifiers: Pressure ulcer location: P Pressure ulcer stage: P Laterality: L Plan: continue wound care, repeat wound culture, speak with Dr. Cherry (6) Dementia Status: Chronic Qualifiers: Dementia type: vascular dementia Alzheimer's disease onset: A Dementia behavioral disturbance: D (7) Diabetes mellitus, type 2 Status: Chronic Qualifiers: Diabetes mellitus complication status: D Diabetes mellitus complication detail: D Diabetic retinopathy severity: D Proliferative retinopathy type: P Diabetes mellitus macular edema: D Diabetes mellitus nursing home insulin use : D Laterality: L Chronic kidney disease stage: C (8) GERD (gastroesophageal reflux disease) Status: Chronic Qualifiers: Esophagitis presence: E (9) Failure to thrive Status: Acute Qualifiers: Failure to thrive age range: F Plan: DISCUSSED D/C HOME WITH HOSPICE CARE
[2017-06-27] MEDS: ZyPREXA TAB 5 MG PO SCH (21:31)
[2017-06-27] MEDS: SNACK - Diabetic Appropriate PO SCH (21:32)
[2017-06-27] MEDS: COLACE CAP 100 MG PO SCH (21:33)
[2017-06-27] MEDS: ROCEPHIN VIAL 1 GM 1 GM in NS 50 ML IV + SPIKE MINIBAG* 50 ML IV SCH (21:36)
[2017-06-28] MEDS: TRANSDERM-SCOP TD SCH (06:03)
[2017-06-28 06:14] LABS: BASOPHILS % (AUTO) 0.4 % (0.2-1.0); EOSINOPHILS # (AUTO) 0.1 x10^3/uL (0.0-0.2); EOSINOPHILS % (AUTO) 1.5 % (0.9-2.9); HEMATOCRIT 26.9 % (36.0-47.0); HEMOGLOBIN 9.5 g/dL (12.0-16.0); LYMPHOCYTES # (AUTO) 1.1 X10^3/uL (1.3-2.9); LYMPHOCYTES % (AUTO) 14.7 % (21.0-51.0); MEAN CORPUSCULAR HEMOGLOBIN 30.5 pg (27.0-34.0); MEAN CORPUSCULAR HGB CONC 35.4 g/dL (33.0-35.0); MEAN CORPUSCULAR VOLUME 86.3 fL (80.0-100.0); MEAN PLATELET VOLUME 6.6 fL (7.4-11.0); MONOCYTES # (AUTO) 0.5 x10^3/uL (0.3-0.8); MONOCYTES % (AUTO) 6.3 % (0.0-13.0); NEUTROPHILS # (AUTO) 5.8 x10^3/uL (2.2-4.8); NEUTROPHILS % (AUTO) 77.1 % (42.0-75.0); PLATELET COUNT 398 X10^3/uL (150.0-450.0); RED BLOOD COUNT 3.11 X10^6/uL (3.5-5.4); RED CELL DISTRIBUTION WIDTH 16.2 % (11.6-16.5); WHITE BLOOD COUNT 7.5 X10^3/uL (3.6-10.0)
[2017-06-28 06:24] LABS: ALBUMIN 1.9 g/dL (3.4-5.0); ALKALINE PHOSPHATASE 65 Units/L (46-116); ASPARTATE AMINO TRANSFERASE 11 Units/L (15-37); BLOOD UREA NITROGEN 11 mg/dL (7-18); CALCIUM 7.5 mg/dL (8.5-10.1); CARBON DIOXIDE 27.1 mmol/L (21-32); CHLORIDE 103 mmol/L (98-107); COR CA(FOR HYPOALB) 9.2 mg/dL (8.5-10.1); CREATININE 0.56 mg/dL (0.55-1.02); GLUCOSE 95 mg/dL (65-99); SODIUM 137 mmol/L (136-145); TOTAL PROTEIN 5.2 g/dL (6.4-8.2); eGFR BLACK RACES > 60 (>60); eGFR NON BLACK RACES > 60 (>60)
[2017-06-28 06:32] LABS: ALANINE AMINOTRANSFERASE 6 Units/L (12-78)
[2017-06-28] MEDS ORDERED: GLUCOPHAGE ONE ×2 (07:49→20:27)
[2017-06-28] MEDS: DIFLUCAN 200 MG IV PREMIX* 200 MG/100 ML BAG IV SCH (08:40)
[2017-06-28] MEDS: CHECK PATCH XX SCH ×2 (08:40→20:49)
[2017-06-28] MEDS: PriLOSEC PO SCH (08:45)
[2017-06-28] MEDS: FLONASE NASAL SPRAY ENOSTRIL SCH ×2 (08:45→20:51)
[2017-06-28] MEDS: LOTENSIN TAB 10 MG PO SCH (08:45)
[2017-06-28] MEDS: SINEMET (PLAIN) 25/250 MG PO SCH ×4 (08:45→20:50)
[2017-06-28] MEDS: HYDROCHLOROTHIAZIDE 12.5 MG CAP PO SCH (08:45)
[2017-06-28] MEDS: GLUCOPHAGE PO SCH ×2 (08:45→20:50)
[2017-06-28] MEDS: SYNTHROID 75 mcg TAB PO SCH (08:45)
[2017-06-28] MEDS: REQUIP PO SCH ×2 (08:45→20:50)
[2017-06-28] MEDS: EFFEXOR XR 37.5 MG CAP PO SCH (08:45)
[2017-06-28] MEDS: XANAX PO PRN ×2 (08:45→17:26)
[2017-06-28] MEDS: XOPENEX 1.25 MG/3 ML NEBULE NEB SCH ×4 (08:57→20:40)
[2017-06-28] MEDS ORDERED: NS IRRIGATION 500 ML IR ONE (10:01)
[2017-06-28] MEDS: MORPHINE SULFATE INJ 2 MG IVP PRN ×2 (10:20→15:01)
--- NOTE | 2017-06-28 13:23 | PCM.PROG ---
Progress Note - Progress Note for Day of Date: 06/28/17 - Subjective Subjective: Mrs. Denton is a 81-year-old white female with a history of multiple chronic medical conditions who was admitted to [facility] on June 20, 2017 with severe dehydration and UTI treatment. Patient's family was concerned regarding possible need for further surgical intervention with regards to a large sacral decubitus, chronic ulcer versus admitting the patient under outpatient hospice. The patient has been followed by Dr. VINSON. Plan to consult with him prior to admitting to home hospice services. We will continue gentle hydration. Labs this am were stable - Past Medical Family Social History Past Med/Fam/Surg Hx: No changes since H&P Allergies: Allergies Iodine and Iodide Containing Produc Allergy (Verified 06/21/17 06:31) Sulfa (Sulfonamide Antibiotics) [SULFA] Allergy (Verified 06/21/17 06:31) steriods Allergy (Unknown, Uncoded 05/19/17 23:36) Shrimp Flavor Allergy (Uncoded 06/21/17 06:31) - Review of Systems ROS: No change since H&P - Vital Signs and I&O's Vital Signs: Temperature 97.5 F Pulse Rate [Right Radial] 83 Pulse Rate 80 Respiratory Rate 18 Blood Pressure [Left Arm] 152/70 Blood Pressure [Right Arm] 107/53 Blood Pressure [Standing] 146/97 Blood Pressure [Sitting] 183/88 Blood Pressure [Lying] 162/63 Blood Pressure 154/81 O2 Sat by Pulse Oximetry 100 Intake and Output: Intake & Output 06/26/17 06/27/17 06/28/17 06/29/17 11:59 11:59 11:59 11:59 Intake Total 1234 1554 340 Output Total 5660 209 2538 Balance -16 854 -910 - Physical Exam Oriented: Person Ear: Normal Nose: Normal Throat: Normal Respiratory: Diminished Cardiovascular: Normal : Normal Auscultation: Bowel Sounds: Normal Tenderness: Normal Skin: Decreased Turgur, Wound (STAGE 3 SACRAL DECUBITUS, HISTORY OF WOUND VAC) Musculoskeletal: Leg, Back:Thoracic, Back:Lumbar, Pelvis, Motor Deficit, Instability Psychiatric: Anxiety Mood Description: Anxious Affect: Anxious Speech Pattern: Clear - Laboratory and Diagnostics Result Diagrams: 06/28/17 05:41 06/28/17 05:41 Labs: 06/27/17 16:05 Sacral Gram Stain - Final 06/27/17 16:05 Sacral Wound Culture - Preliminary 06/26/17 10:37 Urine,Catheterized Urine Culture - Final 06/21/17 05:55 Blood Blood Culture - Final 06/21/17 03:27 Urine,Clean Catch Urine Culture - Final Laboratory WBC 7.5 X10^3/uL (3.6-10.0) 06/28/17 05:41 RBC 3.11 X10^6/uL (3.5-5.4) L 06/28/17 05:41 Hgb 9.5 g/dL (12.0-16.0) L 06/28/17 05:41 Hct 26.9 % (36.0-47.0) L 06/28/17 05:41 MCV 86.3 fL (80.0-100.0) 06/28/17 05:41 MCH 30.5 pg (27.0-34.0) 06/28/17 05:41 MCHC 35.4 g/dL (33.0-35.0) H 06/28/17 05:41 RDW 16.2 % (11.6-16.5) 06/28/17 05:41 Plt Count 398 X10^3/uL (150.0-450.0) 06/28/17 05:41 Plt Count Comment Adequate (ADEQUATE) 06/24/17 07:40 MPV 6.6 fL (7.4-11.0) L 06/28/17 05:41 Neut % 77.1 % (42.0-75.0) H 06/28/17 05:41 Lymph % 14.7 % (21.0-51.0) L 06/28/17 05:41 [place] % 6.3 % (0.0-13.0) 06/28/17 05:41 Eos % 1.5 % (0.9-2.9) 06/28/17 05:41 Baso % 0.4 % (0.2-1.0) 06/28/17 05:41 Neut # 5.8 x10^3/uL (2.2-4.8) H 06/28/17 05:41 Lymph # 1.1 X10^3/uL (1.3-2.9) L 06/28/17 05:41 [place] # 0.5 x10^3/uL (0.3-0.8) 06/28/17 05:41 Eos # 0.1 x10^3/uL (0.0-0.2) 06/28/17 05:41 Baso # 0.0 X10^3/uL (0.0-0.1) 06/28/17 05:41 Absolute Nucleated RBC 0.1 /100WBC 06/28/17 05:41 Total Counted 100 06/23/17 05:25 Neutrophils % (Manual) 82 % (39-76) H 06/23/17 05:25 Band Neutrophils % 3 % (0-10) 06/23/17 05:25 Lymphocytes % (Manual) 12 % (13-43) L 06/23/17 05:25 Monocytes % (Manual) 3 % (4-9) L 06/23/17 05:25 Plt Clumps, EDTA Rare 06/24/17 07:40 Plt Morphology Comment Normal (NORMAL) 06/24/17 07:40 RBC Morphology Normal (NORMAL) 06/24/17 07:40 Sodium 137 mmol/L (136-145) 06/28/17 05:41 Corrected Sodium TNP 06/28/17 05:41 Potassium 3.6 mmol/L (3.5-5.1) 06/28/17 05:41 Chloride 103 mmol/L (98-107) 06/28/17 05:41 Carbon Dioxide 27.1 mmol/L (21-32) 06/28/17 05:41 BUN 11 mg/dL (7-18) 06/28/17 05:41 Creatinine 0.56 mg/dL (0.55-1.02) 06/28/17 05:41 Est GFR (MDRD) Af Amer > 60 (>60) 06/28/17 05:41 Est GFR (MDRD) Non-Af > 60 (>60) 06/28/17 05:41 Glucose 95 mg/dL (65-99) 06/28/17 05:41 Calcium 7.5 mg/dL (8.5-10.1) L 06/28/17 05:41 Corrected Calcium 9.2 mg/dL (8.5-10.1) 06/28/17 05:41 Total Bilirubin 0.20 mg/dL (0.2-1.0) 06/28/17 05:41 AST 11 Units/L (15-37) L 06/28/17 05:41 ALT 6 Units/L (12-78) L 06/28/17 05:41 Alkaline Phosphatase 65 Units/L (46-116) 06/28/17 05:41 Total Protein 5.2 g/dL (6.4-8.2) L 06/28/17 05:41 Albumin 1.9 g/dL (3.4-5.0) L 06/28/17 05:41 Globulin 3.3 g/dL (2.5-4.5) 06/28/17 05:41 Albumin/Globulin Ratio 0.6 Ratio (1.1-2.1) L 06/28/17 05:41 Specimen Type Clean catch urine 06/26/17 10:37 Urine Color Yellow (YELLOW) 06/26/17 10:37 Urine Appearance Hazy (CLEAR) 06/26/17 10:37 Urine pH 5.0 (5.0 - 8.0) 06/26/17 10:37 Ur Specific [place] 1.015 (1.000-1.030) 06/26/17 10:37 Urine Protein 2+ (NEGATIVE) 06/26/17 10:37 Urine Glucose (UA) Negative (NEGATIVE) 06/26/17 10:37 Urine Ketones 1+ (NEGATIVE) 06/26/17 10:37 Urine Occult Blood 5+ (NEGATIVE) 06/26/17 10:37 Urine Nitrite Negative (NEGATIVE) 06/26/17 10:37 Urine Bilirubin Negative (NEGATIVE) 06/26/17 10:37 Urine Urobilinogen Normal (NORMAL) 06/26/17 10:37 Ur Leukocyte Esterase 3+ (NEGATIVE) 06/26/17 10:37 Urine RBC 0-2 /HPF (NEGATIVE) 06/26/17 10:37 Urine WBC 20-25 /HPF (NEGATIVE) 06/26/17 10:37 Ur Squamous Epith Cells Rare /HPF (NEGATIVE) 06/26/17 10:37 Urine Bacteria Trace /HPF (NEGATIVE) 06/26/17 10:37 Urine Yeast Many /HPF (NEGATIVE) 06/21/17 03:27 Ur Culture Indicated? Yes/culture set up 06/26/17 10:37 - Plan (1) Acute renal failure Status: Acute Qualifiers: Acute renal failure type: A Plan: GENTLY IV HYDRATION, PAIN CONTROL, SUPPORTIVE CARE (2) Mental status alteration Status: Acute Qualifiers: Altered mental status type: transient alteration of awareness Coma depth: C Coma timing: C Qualified Code(s): R40.4 - Transient alteration of awareness Plan: R/O INFECTIOUS CAUSE, CBC BLOOD AND URINE CULTURES. CHEST XRAY (3) Arthritis Status: Chronic (4) CHF (congestive heart failure) Status: Chronic Qualifiers: Congestive heart failure type: C Congestive heart failure chronicity: C (5) Decubital ulcer Status: Chronic Qualifiers: Pressure ulcer location: P Pressure ulcer stage: P Laterality: L Plan: continue wound care, repeat wound culture, speak with Dr. Rider (6) Dementia Status: Chronic Qualifiers: Dementia type: vascular dementia Alzheimer's disease onset: A Dementia behavioral disturbance: D (7) Diabetes mellitus, type 2 Status: Chronic Qualifiers: Diabetes mellitus complication status: D Diabetes mellitus complication detail: D Diabetic retinopathy severity: D Proliferative retinopathy type: P Diabetes mellitus macular edema: D Diabetes mellitus alf insulin use : D Laterality: L Chronic kidney disease stage: C (8) GERD (gastroesophageal reflux disease) Status: Chronic Qualifiers: Esophagitis presence: E (9) Failure to thrive Status: Acute Qualifiers: Failure to thrive age range: F Plan: PLAN D/C HOME WITH HOSPICE CARE
[2017-06-28] MEDS: PERCOCET TAB 5/325 MG PO PRN (17:26)
[2017-06-28] MEDS: SNACK - Diabetic Appropriate PO SCH (20:48)
[2017-06-28] MEDS: ROCEPHIN VIAL 1 GM 1 GM in NS 50 ML IV + SPIKE MINIBAG* 50 ML IV SCH (20:50)
[2017-06-28] MEDS: ZyPREXA TAB 5 MG PO SCH (20:50)
[2017-06-28] MEDS: COLACE CAP 100 MG PO SCH (20:50)
[2017-06-29] MEDS: NS 1000 ML 1,000 ML IV PRN (02:00)
[2017-06-29 05:52] LABS: ALANINE AMINOTRANSFERASE 6 Units/L (12-78); ALBUMIN 2.1 g/dL (3.4-5.0); ALKALINE PHOSPHATASE 79 Units/L (46-116); ASPARTATE AMINO TRANSFERASE 15 Units/L (15-37); BLOOD UREA NITROGEN 10 mg/dL (7-18); CALCIUM 7.9 mg/dL (8.5-10.1); CARBON DIOXIDE 27.2 mmol/L (21-32); CHLORIDE 101 mmol/L (98-107); COR CA(FOR HYPOALB) 9.4 mg/dL (8.5-10.1); CREATININE 0.47 mg/dL (0.55-1.02); GLUCOSE 104 mg/dL (65-99); SODIUM 136 mmol/L (136-145); TOTAL PROTEIN 5.8 g/dL (6.4-8.2); eGFR BLACK RACES > 60 (>60); eGFR NON BLACK RACES > 60 (>60)
[2017-06-29 06:13] LABS: BASOPHILS # (AUTO) 0.1 X10^3/uL (0.0-0.1); BASOPHILS % (AUTO) 0.6 % (0.2-1.0); EOSINOPHILS # (AUTO) 0.1 x10^3/uL (0.0-0.2); EOSINOPHILS % (AUTO) 0.5 % (0.9-2.9); HEMATOCRIT 31.9 % (36.0-47.0); LYMPHOCYTES # (AUTO) 0.8 X10^3/uL (1.3-2.9); LYMPHOCYTES % (AUTO) 7.4 % (21.0-51.0); MEAN CORPUSCULAR HEMOGLOBIN 29.7 pg (27.0-34.0); MEAN CORPUSCULAR HGB CONC 34.6 g/dL (33.0-35.0); MEAN CORPUSCULAR VOLUME 85.9 fL (80.0-100.0); MEAN PLATELET VOLUME 6.9 fL (7.4-11.0); MONOCYTES # (AUTO) 0.4 x10^3/uL (0.3-0.8); MONOCYTES % (AUTO) 3.3 % (0.0-13.0); NEUTROPHILS # (AUTO) 9.4 x10^3/uL (2.2-4.8); NEUTROPHILS % (AUTO) 88.2 % (42.0-75.0); PLATELET COUNT 442 X10^3/uL (150.0-450.0); RED BLOOD COUNT 3.71 X10^6/uL (3.5-5.4); RED CELL DISTRIBUTION WIDTH 16.2 % (11.6-16.5); WHITE BLOOD COUNT 10.6 X10^3/uL (3.6-10.0)
[2017-06-29] MEDS: XOPENEX 1.25 MG/3 ML NEBULE NEB SCH ×3 (09:17→17:03)
[2017-06-29] MEDS ORDERED: GLUCOPHAGE ONE (09:29)
[2017-06-29] MEDS ORDERED: BUTT CREAM (COMPOUND) TOP PRN (09:36)
[2017-06-29] MEDS: LOTENSIN TAB 10 MG PO SCH (09:41)
[2017-06-29] MEDS: HYDROCHLOROTHIAZIDE 12.5 MG CAP PO SCH (09:42)
[2017-06-29] MEDS: SINEMET (PLAIN) 25/250 MG PO SCH ×3 (09:42→16:48)
[2017-06-29] MEDS: DIFLUCAN 200 MG IV PREMIX* 200 MG/100 ML BAG IV SCH (09:42)
[2017-06-29] MEDS: SYNTHROID 75 mcg TAB PO SCH (09:42)
[2017-06-29] MEDS: FLONASE NASAL SPRAY ENOSTRIL SCH (09:42)
[2017-06-29] MEDS: PriLOSEC PO SCH (09:42)
[2017-06-29] MEDS: EFFEXOR XR 37.5 MG CAP PO SCH (09:42)
[2017-06-29] MEDS: GLUCOPHAGE PO SCH (09:42)
[2017-06-29] MEDS: REQUIP PO SCH (09:42)
[2017-06-29] MEDS: CHECK PATCH XX SCH (09:42)
[2017-06-29] MEDS: MORPHINE SULFATE INJ 2 MG IVP PRN ×2 (09:52→17:00)
[2017-06-29] MEDS ORDERED: D50W ABBOJECT SYR IV PRN (11:54)
[2017-06-29] MEDS: PERCOCET TAB 5/325 MG PO PRN (12:58)
[2017-06-29 16:32] VITALS: BP 108/55
== END 2017-06-29 17:40 | disposition home health service (06) | DRG 682 ==
LOC: MED/SURG 17:43 → OBSVTOIN 17:43 → MED/SURG 06-22 23:45
PROVIDERS: ADMIT Internal Medicine; ATTEND Internal Medicine
DX: N17.8 Other acute kidney failure (principal); E86.0 Dehydration; N39.0 Urinary tract infection, site not specified; E87.1 Hypo-osmolality and hyponatremia; R94.4 Abnormal results of kidney function studies; L89.154 Pressure ulcer of sacral region, stage 4; R53.1 Weakness; G20 Parkinson's disease; F02.80 Dementia in other diseases classified elsewhere, unspecified severity, without behavioral disturbance, psychotic disturbance, mood disturbance, and anxiety; R40.4 Transient alteration of awareness; M13.89 Other specified arthritis, multiple sites; I50.9 Heart failure, unspecified; E11.65 Type 2 diabetes mellitus with hyperglycemia; K21.9 Gastro-esophageal reflux disease without esophagitis; I10 Essential (primary) hypertension; R62.7 Adult failure to thrive; Z66 Do not resuscitate
CPT/HCPCS: 36415; 71010; 80053; 81001; 83735; 84439; 84443; 85025; 87040; 87070; 87075; 87086; 87205; 94640; 99231; A4217; A4222; J0696; J1450; J1815; J2270; J3490